=== PATIENT | male | born 1980 | race Caucasian/White ===

== ENCOUNTER 2023-03-10 12:04 | Inpatient (IN) | payer OTHER ==
[2023-03-10] MEDS ORDERED: SODIUM CHLORIDE 0.9% 1,000 ML IV STA ×2 (13:01)
[2023-03-10] MEDS ORDERED: LORazepam 2 MG/ML INJ IV STA ×2 (13:01→16:33)
[2023-03-10 13:20] LABS: Anisocytosis Slight; Basophils % (A) 1 %; Eosinophils # (A) 0.2 k/uL (0-0.7); Eosinophils % (A) 5 %; HCT 31.4 % (39.0-53.0); HGB 9.9 gm/dL (13.0-17.5); Hypochromasia Marked; Lymphocytes % (A) 28 %; MCHC 31.4 g/dL (31.0-37.0); MCV 82.7 fL (80.0-100.0); Monocytes # (A) 0.2 k/uL (0-1.0); Monocytes % (A) 5 %; Neutrophils # (A) 1.9 k/uL (1.3-7.7); Neutrophils % (A) 57 %; Platelet Count 456 k/uL (150-450); Poikilocytosis Moderate; RDW 18.3 % (11.5-15.5); WBC 3.4 k/uL (3.8-10.6)
[2023-03-10 13:35] LABS: ALT 10 U/L (4-49); AST 31 U/L (17-59); African American GFR (CKD) >90 (>60 ml/min/1.73 sqM); Albumin 4.1 g/dL (3.5-5.0); Alkaline Phosphatase 73 U/L (38-126); Anion Gap 20 mmol/L; Blood Urea Nitrogen 4 mg/dL (9-20); Calcium 8.1 mg/dL (8.4-10.2); Carbon Dioxide 20 mmol/L (22-30); Chloride 103 mmol/L (98-107); Glucose 90 mg/dL (74-99); Lipase 57 U/L (23-300); Magnesium 1.3 mg/dL (1.6-2.3); Non-African American GFR(CKD) >90 (>60 ml/min/1.73 sqM); Sodium 143 mmol/L (137-145); Total Bilirubin 0.2 mg/dL (0.2-1.3); Total Protein 6.7 g/dL (6.3-8.2)
[2023-03-10 13:47] LABS: Alcohol 397 mg/dL
[2023-03-10 14:24] LABS: Amphetamine Screen,Urine Not Detected (NotDetected); Barbiturate Screen,Urine Detected (NotDetected); Benzodiazepines Screen,Urine Detected (NotDetected); Cocaine Screen,Urine Not Detected (NotDetected); Methadone Screen, Urine Not Detected (NotDetected); Opiate Screen,Urine Not Detected (NotDetected); Oxycodone Screen, Urine Not Detected (NotDetected); Phencyclidine Screen,Urine Not Detected (NotDetected); Tricyclic Antidepressant,Urine Not Detected (NotDetected); Urn Cannabinoid Scrn Detected (NotDetected)
--- NOTE | 2023-03-10 14:45 | ED ---
Alcohol HPI - General Chief Complaint: GI Bleed Stated Complaint: poss GI bleed Time Seen by Provider: 03/10/23 12:11 Source: patient, RN notes reviewed, old records reviewed Mode of arrival: EMS Limitations: no limitations - History of Present Illness Initial Comments: This is a 42-year-old male to the emergency department for evaluation patient comes in under stress and likely intoxication or impending DTs of possible seizure history of seizures patient is withdrawal seizures as well as underlying seizure history. Patient presents with alcohol abuse and opiate abuse. No trauma no travel history or sick contacts no other complaints. 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, unknown -: hour(s) Recent Trauma: No Associated Symptoms: seizure, depression Treatments Prior to Arrival: none Chronic Alcohol Use: Yes - Related Data Home Medications Medication Instructions Recorded Confirmed Acetaminophen Tab [Tylenol] 650 mg PO Q6H PRN 03/10/23 03/10/23 Folic Acid 1 mg PO DAILY 03/10/23 03/10/23 High Potency Multivitamin With Iron 1 tab PO DAILY 03/10/23 03/10/23 Magnesium Oxide [Magox 400] 400 mg PO DAILY 03/10/23 03/10/23 Metoprolol Tartrate [Lopressor] 25 mg PO BID 03/10/23 03/10/23 Nicotine 21Mg/24Hr Patch [Habitrol] 1 patch TRANSDERM DAILY PRN 03/10/23 03/10/23 Ondansetron Odt [Zofran Odt] 4 mg PO TID PRN 03/10/23 03/10/23 Pantoprazole [Protonix] 40 mg PO BID 03/10/23 03/10/23 QUEtiapine [SEROquel] 50 mg PO HS 03/10/23 03/10/23 Thiamine [Vitamin B-1] 100 mg PO DAILY 03/10/23 03/10/23 levETIRAcetam [Keppra] 1,000 mg PO BID 03/10/23 03/10/23 Allergies Allergy/AdvReac Type Severity Reaction Status Date / Time aspirin Allergy Unknown Unknown Verified 03/10/23 16:38 Childhood Penicillins Allergy Unknown Unknown Verified 03/10/23 16:38 Childhood Review of Systems ROS Statement: Those systems with pertinent positive or pertinent negative responses have been documented in the HPI. ROS Other: All systems not noted in ROS Statement are negative. Past Medical History Past Medical History: Hypertension, Seizure Disorder Additional Past Medical History / Comment(s): closed head injury 2011, hx drug and alcohol abuse History of Any Multi-Drug Resistant Organisms: None Reported Past Surgical History: No Surgical Hx Reported Past Psychological History: Anxiety, Depression, Schizophrenia Past Alcohol Use History: Daily, Heavy General Exam Limitations: no limitations, altered mental status, physical limitation General appearance: alert, appears intoxicated, lethargic Head exam: Present: atraumatic, normocephalic, normal inspection Eye exam: Present: normal appearance, PERRL, EOMI. Absent: scleral icterus, conjunctival injection, periorbital swelling ENT exam: Present: normal exam, mucous membranes moist Neck exam: Present: normal inspection. Absent: tenderness, meningismus, lymphadenopathy Respiratory exam: Present: normal lung sounds bilaterally. Absent: respiratory distress, wheezes, rales, rhonchi, stridor Cardiovascular Exam: Present: regular rate, normal rhythm, normal heart sounds. Absent: systolic murmur, diastolic murmur, rubs, gallop, clicks GI/Abdominal exam: Present: soft, normal bowel sounds. Absent: distended, tenderness, guarding, rebound, rigid Extremities exam: Present: normal inspection, full ROM, normal capillary refill. Absent: tenderness, pedal edema, joint swelling, calf tenderness Back exam: Present: normal inspection Neurological exam: Present: alert, oriented X3, CN II-XII intact Psychiatric exam: Present: normal affect, normal mood Skin exam: Present: warm, dry, intact, normal color. Absent: rash Course Vital Signs 03/10/23 03/10/23 12:13 13:40 Temperature 98.2 F Pulse Rate 104 H 82 Respiratory 18 Rate Blood Pressure 123/86 O2 Sat by Pulse 100 Oximetry - Reevaluation(s) Reevaluation #1: 03/10/23 19:09 Medical record is reviewed Reevaluation #2: 03/10/23 19:09 Patient has improved symptoms here in the ER more relaxed Reevaluation #3: 03/10/23 19:09 Patient informed results and questions answered Reevaluation #4: 03/10/23 19:09 Was pt. sent in by a medical professional or institution? @ -[facility] Did you speak to anyone other than the patient for history? @ -no Did you review nursing and triage notes? @ -agree Were old charts reviewed? @ -no Differential Diagnosis? @ -prior EKG interpreted by me (3pts min.)? @ -yes X-rays interpreted by me (1pt min.)? @ -no CT interpreted by me (1pt min.)? @ -no U/S interpreted by me (1pt. min.)? @ -no What testing was considered but not performed? (CT, X-rays, U/S, labs)? Why? @ -no What meds were considered but not given? Why? @ -no Did you discuss the management of the patient with other professionals? @ -admitting physician re management of DTs Did you reconcile home meds? @ -no Was smoking cessation discussed for >3mins.? @ -no Was critical care preformed (if so, how long)? @ -no Were there social determinants of health that impacted care today? How? (Homelessness, low income, unemployed, alcoholism, drug addiction, transportation, low edu. Level, literacy, decrease access to med. care, prison, rehab)? @ -no Was there de-escalation of care discussed even if they declined? (Discuss DNR or withdrawal of care, Hospice)? @ -no What co-morbidities impacted this encounter? (DM, HTN, Smoking, COPD, CAD, Cancer, CVA, Hep., AIDS, mental health diagnosis, sleep apnea, morbid obesity)? @ -no Was patient admitted / discharged? @ -admit Undiagnosed new problem with uncertain prognosis? @ -no Drug Therapy requiring intensive monitoring for toxicity (Heparin, Nitro, Insulin, Cardizem)? @ -no Were any procedures done? @ -no Diagnosis/symptom? @ -ETOHintoxication, ImpendingDTs Acute, or Chronic, or Acute on Chronic? @ -acute Uncomplicated (without systemic symptoms) or Complicated (systemic symptoms)? @ -uncomplicated Side effects of treatment? @ -no Exacerbation, Progression, or Severe Exacerbation] @ -no Poses a threat to life or bodily function? @ -no Reevaluation #5: 03/10/23 19:09 Differential Altered Mental Status: Hypoglycemia, DKA, hypercapnia, ETOH, overdose, CO poisoning, trauma, myxedema coma, HTN encephalopathy, infection, encephalitis, psychosis, intercranial hemorrhage, hepatic encephalopathy, meningitis, CVA, this is not meant to be an all-inclusive list - Consultations Consultation #1: Spoke with admitting physicians will admit this patient Medical Decision Making - Medical Decision Making 42 male sent to the ER for evaluation of alcohol withdrawal alcohol intoxication altered mental status, patient was sent in by [facility] found to be significantly intoxicated anxious and will be admitted for impending DTs - Lab Data Result diagrams: 03/10/23 13:08 03/10/23 13:08 Lab Results 03/10/23 03/10/23 03/10/23 Range/Units 13:08 13:08 13:12 WBC 3.4 L (3.8-10.6) k/uL RBC 3.80 L (4.30-5.90) m/uL Hgb 9.9 L (13.0-17.5) gm/dL Hct 31.4 L (39.0-53.0) % MCV 82.7 (80.0-100.0) fL MCH 26.0 (25.0-35.0) pg MCHC 31.4 (31.0-37.0) g/dL RDW 18.3 H (11.5-15.5) % Plt Count 456 H (150-450) k/uL MPV 7.0 Neutrophils % 57 % Lymphocytes % 28 % Monocytes % 5 % Eosinophils % 5 % Basophils % 1 % Neutrophils # 1.9 (1.3-7.7) k/uL Lymphocytes # 1.0 (1.0-4.8) k/uL Monocytes # 0.2 (0-1.0) k/uL Eosinophils # 0.2 (0-0.7) k/uL Basophils # 0.0 (0-0.2) k/uL Hypochromasia Marked Poikilocytosis Moderate Anisocytosis Slight Sodium 143 (137-145) mmol/L Potassium 4.0 (3.5-5.1) mmol/L Chloride 103 (98-107) mmol/L Carbon Dioxide 20 L (22-30) mmol/L Anion Gap 20 mmol/L BUN 4 L (9-20) mg/dL Creatinine 0.51 L (0.66-1.25) mg/dL Est GFR (CKD-EPI)AfAm >90 (>60 ml/min/1.73 sqM) Est GFR (CKD-EPI)NonAf >90 (>60 ml/min/1.73 sqM) Glucose 90 (74-99) mg/dL Calcium 8.1 L (8.4-10.2) mg/dL Phosphorus 4.0 (2.5-4.5) mg/dL Magnesium 1.3 L (1.6-2.3) mg/dL Total Bilirubin 0.2 (0.2-1.3) mg/dL AST 31 (17-59) U/L ALT 10 (4-49) U/L Alkaline Phosphatase 73 (38-126) U/L Total Protein 6.7 (6.3-8.2) g/dL Albumin 4.1 (3.5-5.0) g/dL Lipase 57 (23-300) U/L Urine Opiates Screen Not Detected (NotDetected) Ur Oxycodone Screen Not Detected (NotDetected) Urine Methadone Screen Not Detected (NotDetected) Ur Propoxyphene Screen Not Detected (NotDetected) Ur Barbiturates Screen Detected H (NotDetected) U Tricyclic Antidepress Not Detected (NotDetected) Ur Phencyclidine Scrn Not Detected (NotDetected) Ur Amphetamines Screen Not Detected (NotDetected) U Methamphetamines Scrn Not Detected (NotDetected) U Benzodiazepines Scrn Detected H (NotDetected) Urine Cocaine Screen Not Detected (NotDetected) U Marijuana (THC) Screen Detected H (NotDetected) Serum Alcohol 397 H* mg/dL Disposition Clinical Impression: Alcohol intoxication, Alcohol withdrawal delirium, Gastritis, Pancreatitis, Polysubstance abuse Disposition: ADMITTED IP TO THIS HOSP Condition: Fair Is patient prescribed a controlled substance at d/c from ED?: No Time of Disposition: 16:40
[2023-03-10] MEDS ORDERED: THIAMINE 100 MG/ML 2 ML VIAL IM STA (16:41)
[2023-03-10] MEDS ORDERED: NALOXONE 0.4 MG/ML 1 ML VIAL IV PRN (16:41)
[2023-03-10] MEDS ORDERED: ONDANSETRON 4 MG/2 ML VIAL IVP PRN (16:41)
[2023-03-10] MEDS: SODIUM CHLORIDE 0.9% 1,000 ML IV SCH (17:30)
[2023-03-10] MEDS: LORazepam 2 MG/ML INJ IV PRN (23:22)
[2023-03-10] MEDS ORDERED: Magnesium Replacement Protocol 1 EACH MISC MISCELLANE PRN (23:39)
[2023-03-10] MEDS: QUEtiapine 50 MG TAB PO SCH (23:59)
[2023-03-10] MEDS: METOPROLOL TARTRATE 25 MG TAB PO SCH (23:59)
[2023-03-10] MEDS: levETIRAcetam 500 MG TAB PO SCH (23:59)
[2023-03-10] MEDS: ACETAMINOPHEN TAB 325 MG TAB PO PRN (23:59)
[2023-03-10] MEDS: NICOTINE 21MG/24HR PATCH TRANSDERM PRN (23:59)
[2023-03-11] MEDS: SODIUM CHLORIDE 0.9% 1,000 ML IV SCH ×3 (00:07→16:13)
[2023-03-11] MEDS: MAGNESIUM SULFATE-D5W PMX 1 GM in DEXTROSE/WATER 1 100ML.BAG IVPB SCH ×4 (00:07→04:05)
[2023-03-11] MEDS: LORazepam 2 MG/ML INJ IV PRN ×5 (04:13→20:21)
[2023-03-11] MEDS: ACETAMINOPHEN TAB 325 MG TAB PO PRN (06:02)
[2023-03-11] MEDS: PANTOPRAZOLE 40 MG TABLET PO SCH ×2 (06:40→16:30)
[2023-03-11] MEDS ORDERED: THIAMINE 100 MG TAB PO SCH (09:00)
[2023-03-11] MEDS: MAGNESIUM OXIDE 400 MG TAB PO SCH (09:16)
[2023-03-11] MEDS: METOPROLOL TARTRATE 25 MG TAB PO SCH ×2 (09:16→20:21)
[2023-03-11] MEDS: levETIRAcetam 500 MG TAB PO SCH ×2 (09:16→20:21)
[2023-03-11] MEDS: THIAMINE 100 MG TAB PO SCH (09:16)
[2023-03-11] MEDS ORDERED: LORazepam 2 MG/ML INJ IV PRN (15:48)
--- NOTE | 2023-03-11 16:04 | P.HPIM ---
History of Present Illness H&P Date: 03/11/23 This is a 42 year old male with history of chronic alcohol abuse, alcohol withdrawal seizure, and opiate abuse, who presents to the emergency room intoxicated and is admitted for alcohol detox. Patient states he arrived to [facility] and was told he could not be admitted for rehab and patient was brought to the emergency room for impending alcohol withdrawal. Patient had blood alcohol level of 397 on admission, with drug toxicology positive for barbituates, benzodiazepines, marijuana. hemoglobin also low at 9.9 with no other levels to compare too, his MCV is normal. Magnesium was 1.3 and also replaced. Patient is hemodynamically stable. He has been started on ativan CIWA protocol and admitted to medical floor. This morning he is refusing lab draws. REVIEW OF SYSTEMS: CONSTITUTIONAL: No fever, no malaise, no fatigue. HEENT: No recent visual problems or hearing problems. Denied any sore throat. CARDIOVASCULAR: No chest pain, orthopnea, PND, no palpitations, no syncope. PULMONARY: No shortness of breath, no cough, no hemoptysis. GASTROINTESTINAL: No diarrhea, no nausea, no vomiting, no abdominal pain. NEUROLOGICAL: No headaches, no weakness, no numbness. HEMATOLOGICAL: Denies any bleeding or petechiae. GENITOURINARY: Denies any burning micturition, frequency, or urgency. MUSCULOSKELETAL/RHEUMATOLOGICAL: Denies any joint pain, swelling, or any muscle pain. ENDOCRINE: Denies any polyuria or polydipsia. The rest of the 14-point review of systems is negative. PHYSICAL EXAMINATION: GENERAL: The patient is alert and oriented x3, not in any acute distress. Well developed, well nourished. HEENT: Pupils are round and equally reacting to light. EOMI. No scleral icterus. No conjunctival pallor. Normocephalic, atraumatic. No pharyngeal erythema. No th yromegaly. CARDIOVASCULAR: S1 and S2 present. No murmurs, rubs, or gallops. PULMONARY: Chest is clear to auscultation, no wheezing or crackles. ABDOMEN: Soft, nontender, nondistended, normoactive bowel sounds. No palpable organomegaly. MUSCULOSKELETAL: No joint swelling or deformity. EXTREMITIES: No cyanosis, clubbing, or pedal edema. NEUROLOGICAL: Gross neurological examination did not reveal any focal deficits. SKIN: No rashes. Assessment Acute alcohol intoxication with impending DTs. Anemia, normocytic Hypomagnesemia Polysubstance abuse History of seizure disorder from close head injury in 2010 History of alcohol withdrawal seizure Chronic and ongoing nicotine use History of hypertension Anxiety/Depression/Schizophrenia GI prophylaxis DVT prophylaxis Full Code Plan Continue IV ativan CIWA protocol and oral librium as needed has been added Continue IV fluids and diet as tolerated Continue supportive care Repeat labs in AM patient is agreeable to AM lab draw The impression and plan of care has been dictated by Susanne Garcia Nurse Practitioner as directed. Dr. Sandra MD I have performed a history and physical examination and medical decision making of this patient, discussed the same with the dictator, and agree with the dictators assessment and plan as written, documented as a scribe. Based on total visit time, I have performed more than 50% of this visit. Past Medical History Past Medical History: Hypertension, Seizure Disorder Additional Past Medical History / Comment(s): closed head injury 2010, hx drug and alcohol abuse History of Any Multi-Drug Resistant Organisms: None Reported Past Surgical History: No Surgical Hx Reported Past Psychological History: Anxiety, Depression, Schizophrenia Smoking Status: Current every day smoker Past Alcohol Use History: Daily, Heavy Past Drug Use History: None Reported Medications and Allergies Home Medications Medication Instructions Recorded Confirmed Type Acetaminophen Tab [Tylenol] 650 mg PO Q6H PRN 03/10/23 03/10/23 History Folic Acid 1 mg PO DAILY 03/10/23 03/10/23 History High Potency Multivitamin With Iron 1 tab PO DAILY 03/10/23 03/10/23 History Magnesium Oxide [Magox 400] 400 mg PO DAILY 03/10/23 03/10/23 History Metoprolol Tartrate [Lopressor] 25 mg PO BID 03/10/23 03/10/23 History Nicotine 21Mg/24Hr Patch [Habitrol] 1 patch TRANSDERM DAILY PRN 03/10/2303/10 History Ondansetron Odt [Zofran Odt] 4 mg PO TID PRN 03/10/23 03/10/23 History Pantoprazole [Protonix] 40 mg PO BID 03/10/23 03/10/23 History QUEtiapine [SEROquel] 50 mg PO HS 03/10/23 03/10/23 History Thiamine [Vitamin B-1] 100 mg PO DAILY 03/10/23 03/10/23 History levETIRAcetam [Keppra] 1,000 mg PO BID 03/10/23 03/10/23 History Allergies Allergy/AdvReac Type Severity Reaction Status Date / Time aspirin Allergy Unknown Unknown Verified 03/10/23 16:38 Childhood Penicillins Allergy Unknown Unknown Verified 03/10/23 16:38 Childhood Physical Exam Vitals: Vital Signs Temp Pulse Pulse Resp BP BP Pulse Ox 03/11/23 07:30 98.1 F 84 16 117/66 98 03/11/23 02:10 98.5 F 88 14 112/70 100 03/10/23 21:40 92 16 124/83 97 03/10/23 13:40 82 03/10/23 12:13 98.2 F 104 H 18 123/86 100 Intake and Output 03/10/23 03/11/23 03/11/23 22:59 06:59 14:59 Other: # Voids 4 Weight 72.575 kg Results CBC & Chem 7: 03/10/23 13:08 03/10/23 13:08 Labs: Abnormal Lab Results - Last 24 Hours (Table) 03/10/23 03/10/23 03/10/23 Range/Units 13:08 13:08 13:12 WBC 3.4 L (3.8-10.6) k/uL RBC 3.80 L (4.30-5.90) m/uL Hgb 9.9 L (13.0-17.5) gm/dL Hct 31.4 L (39.0-53.0) % RDW 18.3 H (11.5-15.5) % Plt Count 456 H (150-450) k/uL Carbon Dioxide 20 L (22-30) mmol/L BUN 4 L (9-20) mg/dL Creatinine 0.51 L (0.66-1.25) mg/dL Calcium 8.1 L (8.4-10.2) mg/dL Magnesium 1.3 L (1.6-2.3) mg/dL Ur Barbiturates Screen Detected H (NotDetected) U Benzodiazepines Scrn Detected H (NotDetected) U Marijuana (THC) Screen Detected H (NotDetected) Serum Alcohol 397 H* mg/dL Thrombosis Risk Factor Assmnt - Choose All That Apply Any of the Below Risk Factors Present?: Yes Each Factor Represents 1 point: Age 41-60 years Other Risk Factors: No Other congenital or acquired thrombophilia - If yes, enter type in comment: No Thrombosis Risk Factor Assessment Total Risk Factor Score: 1 Thrombosis Risk Factor Assessment Level: Low Risk Assessment and Plan Time with Patient: Less than 30
[2023-03-11] MEDS: chlordiazePOXIDE 25 MG CAP PO PRN (16:13)
[2023-03-11] MEDS: QUEtiapine 50 MG TAB PO SCH (20:21)
[2023-03-11] MEDS ORDERED: diphenhydrAMINE 25 MG CAP PO STA (22:21)
[2023-03-12] MEDS: NICOTINE 21MG/24HR PATCH TRANSDERM PRN (01:44)
[2023-03-12] MEDS: LORazepam 2 MG/ML INJ IV PRN (01:44)
[2023-03-12] MEDS: ACETAMINOPHEN TAB 325 MG TAB PO PRN ×2 (02:05→21:21)
[2023-03-12] MEDS: hydrOXYzine HCL 10 MG TAB PO PRN (02:06)
[2023-03-12] MEDS: SODIUM CHLORIDE 0.9% 1,000 ML IV SCH ×2 (05:36→17:47)
[2023-03-12] MEDS ORDERED: LORazepam 0.5 MG TAB PO PRN (06:40)
[2023-03-12] MEDS: LORazepam 1 MG TAB PO PRN ×4 (06:59→21:59)
[2023-03-12] MEDS: PANTOPRAZOLE 40 MG TABLET PO SCH (06:59)
[2023-03-12] MEDS: METOPROLOL TARTRATE 25 MG TAB PO SCH ×2 (10:13→21:21)
[2023-03-12] MEDS: THIAMINE 100 MG TAB PO SCH (10:13)
[2023-03-12] MEDS: MAGNESIUM OXIDE 400 MG TAB PO SCH (10:13)
[2023-03-12] MEDS: levETIRAcetam 500 MG TAB PO SCH ×2 (10:13→21:21)
[2023-03-12 12:27] LABS: African American GFR (CKD) >90 (>60 ml/min/1.73 sqM); Anion Gap 8 mmol/L; Blood Urea Nitrogen <2 mg/dL (9-20); Calcium 8.4 mg/dL (8.4-10.2); Carbon Dioxide 25 mmol/L (22-30); Chloride 101 mmol/L (98-107); Glucose 85 mg/dL (74-99); Magnesium 1.2 mg/dL (1.6-2.3); Non-African American GFR(CKD) >90 (>60 ml/min/1.73 sqM); Sodium 134 mmol/L (137-145)
[2023-03-12] MEDS ORDERED: Magnesium Replacement Protocol 1 EACH MISC MISCELLANE PRN (13:28)
--- NOTE | 2023-03-12 13:35 | P.PN ---
Subjective Progress Note Date: 03/12/23 This is a 42 year old male with history of chronic alcohol abuse, alcohol withdrawal seizure, and opiate abuse, who presents to the emergency room intoxicated and is admitted for alcohol detox. Patient states he arrived to [facility] and was told he could not be admitted for rehab and patient was brought to the emergency room for impending alcohol withdrawal. Patient had blood alcohol level of 397 on admission, with drug toxicology positive for barbituates, benzodiazepines, marijuana. hemoglobin also low at 9.9 with no other levels to compare too, his MCV is normal. Magnesium was 1.3 and also replaced. Patient is hemodynamically stable. He has been started on ativan CIWA protocol and admitted to medical floor. This morning he is refusing lab draws. 03/12/2023 Patient today is doing well requiring less ativan, tremors have improved. He denies any nausea/ vomiting but has not been able to tolerate much oral intake secondary to abdominal pain which is tender over the epigastric area. He does report having black stools a few days ago which he had denied yesterday. Per [place] patient is unable to return unless he is cleared by GI services which currently unavailable in the hospital this admission. Hemoglobin today is currently pending. Sodium today is 134, magnesium 1.2. Patient lost IV access and difficult to obtain he is pending a midline today to continue with the IV fluids and replace his magnesium. He reports feeling weak also. Review of Systems Constitutional: Reports fatigue denied any fever. Cardio vascular: denied any chest pain, palpitations Gastrointestinal: denied any nausea, vomiting. Reports abdominal pain and black stools. Pulmonary: Denied any shortness of breath cough Neurologic denied any new focal deficits All inpatient medications were reviewed and appropriate changes in these medications as dictated in the interval history and assessment and plan. PHYSICAL EXAMINATION: GENERAL: The patient is alert and oriented x3, not in any acute distress. Well developed, well nourished. Fatigued HEENT: Pupils are round and equally reacting to light. EOMI. No scleral icterus. No conjunctival pallor. Normocephalic, atraumatic. No pharyngeal erythema. No thyromegaly. CARDIOVASCULAR: S1 and S2 present. No murmurs, rubs, or gallops. PULMONARY: Chest is clear to auscultation, no wheezing or crackles. ABDOMEN: Soft, epigastric tenderness on palpation, nondistended, normoactive bowel sounds. No palpable organomegaly. MUSCULOSKELETAL: No joint swelling or deformity. EXTREMITIES: No cyanosis, clubbing, or pedal edema. NEUROLOGICAL: Gross neurological examination did not reveal any focal deficits. Generalized weakness. SKIN: No rashes. Assessment Acute alcohol intoxication with acute alcohol withdrawal improving Dark stool and epigastric pain rule out acute GIB Anemia, normocytic Hypomagnesemia Polysubstance abuse History of seizure disorder from close head injury in 2010 History of alcohol withdrawal seizure Chronic and ongoing nicotine use History of hypertension Anxiety/Depression/Schizophrenia GI prophylaxis DVT prophylaxis Full Code Plan Obtain IV access to continue with IV fluids Replace magnesium Continue ativan CIWA protocol and oral librium as needed has been added General surgery consulted regarding the epigastric pain/black stools PT/OT consultation Continue supportive care The impression and plan of care has been dictated by Nurse Erin Prac titioner as directed. Dr. Sandra MD I have performed a history and physical examination and medical decision making of this patient, discussed the same with the dictator, and agree with the dictators assessment and plan as written, documented as a scribe. Based on total visit time, I have performed more than 50% of this visit. Objective - Vital Signs Vital signs: Vital Signs Temp 98.6 F 03/12/23 07:00 Pulse 88 03/12/23 07:00 Resp 16 03/12/23 07:00 BP 103/66 03/12/23 07:00 Pulse Ox 98 03/12/23 07:00 FiO2 Intake & Output 03/11/23 03/12/23 03/12/23 18:59 06:59 18:59 Output Total 300 Balance -300 Output: Urine 300 Other: Voiding Method Toilet Urinal # Voids 3 - Labs CBC & Chem 7: 03/10/23 13:08 03/12/23 11:21 Labs: Abnormal Lab Results - Last 24 Hours (Table) 03/12/23 Range/Units 11:21 Sodium 134 L (137-145) mmol/L BUN <2 L (9-20) mg/dL Creatinine 0.47 L (0.66-1.25) mg/dL Magnesium 1.2 L (1.6-2.3) mg/dL
--- NOTE | 2023-03-12 15:22 | P.GSCN ---
History of Present Illness Consult date: 03/12/23 History of present illness: CHIEF COMPLAINT: Black stools HISTORY OF PRESENT ILLNESS: This is a 42-year-old male with a known history of chronic alcohol abuse and opiate abuse. He presents to the hospital from [place] for alcohol detox. Patient was intoxicated on admission. He is actively going through withdrawals requiring Ativan. He is currently lost IV access. And had his refused IV replaced. Apparently 2 days ago patient had black stools. Patient reports that it was just 3 episodes. He denies any abdominal pain. Denies any nausea or vomiting. He's had no further black stools. Patient reports requiring EGDs in the past. It is difficult to obtain history from patient due to him going through withdrawals. Hemoglobin 9.9 on admission. According to medicine service is requiring GI clearance before patient can return. Patient is no longer having black stools. PAST MEDICAL HISTORY: Alcohol use, alcohol withdrawal seizure, seizure history from closed head injury in 2010, history of drug and alcohol abuse, schizophrenia, anxiety and depression PAST SURGICAL HISTORY: See below MEDICATIONS: See below ALLERGIES: See below SOCIAL HISTORY: Opiate abuse and heavy alcohol use REVIEW OF SYSTEMS: CONSTITUTIONAL: Denies fever or chills. HEENT: Denies blurred vision, vision changes, or eye pain. Denies hemoptysis CARDIOVASCULAR: Denies chest pain or pressure. RESPIRATORY: No shortness of breath. GASTROINTESTINAL: See HPI for pertinent findings HEMATOLOGIC: Denies bleeding disorders. GENITOURINARY: Denies any blood in urine or increased urinary frequency. SKIN: Denies pruitis. Denies rash. PHYSICAL EXAM: VITAL SIGNS: Reviewed GENERAL: Well-developed in no acute distress. ABDOMEN: Soft. Nondistended. nontender NEUROLOGIC: Awake and alert. confused LABORATORY DATA: WBC 3.4 Hgb 9.9 platelets 456 Sodium 134 potassium 4.0 creatinine 0.47 Magnesium 1.2 Total bilirubin 0.2 AST 31 ALT 10 alk phos 73 lipase 57 Urine drug screen barbiturates, benzodiazepine and and marijuana detected Serum alcohol level elevated at 397 IMAGING: ASSESSMENT: 1. Alcohol intoxication with alcohol withdrawal 2. Anemia with black stools 3. Hypomagnesemia 4. Polysubstance abuse PLAN: -Recommend EGD and colonoscopy when he is not actively going through withdrawals and is medically stable -Continue regular diet -Continue IV Protonix -Continue to monitor hemoglobin -Continue monitoring sensor symptoms of bleeding -Continue CIWA protocol for ETOH withdrawal -Magnesium is being replaced the medicine service Thank you for this consultation Physician Vegetable Cutter note has been reviewed by physician. Signing provider agrees with the documented findings, assessment, and plan of care. Past Medical History Past Medical History: Hypertension, Seizure Disorder Additional Past Medical History / Comment(s): closed head injury 2010, hx drug and alcohol abuse History of Any Multi-Drug Resistant Organisms: None Reported Past Surgical History: No Surgical Hx Reported Past Psychological History: Anxiety, Depression, Schizophrenia Smoking Status: Current every day smoker Past Alcohol Use History: Daily, Heavy Past Drug Use History: None Reported Medications and Allergies Home Medications Medication Instructions Recorded Confirmed Type Acetaminophen Tab [Tylenol] 650 mg PO Q6H PRN 03/10/23 03/10/23 History Folic Acid 1 mg PO DAILY 03/10/23 03/10/23 History High Potency Multivitamin With Iron 1 tab PO DAILY 03/10/23 03/10/23 History Magnesium Oxide [Magox 400] 400 mg PO DAILY 03/10/23 03/10/23 History Metoprolol Tartrate [Lopressor] 25 mg PO BID 03/10/23 03/10/23 History Nicotine 21Mg/24Hr Patch [Habitrol] 1 patch TRANSDERM DAILY PRN 03/10/23 03/10/23 History Ondansetron Odt [Zofran Odt] 4 mg PO TID PRN 03/10/23 03/10/23 History Pantoprazole [Protonix] 40 mg PO BID 03/10/23 03/10/23 History QUEtiapine [SEROquel] 50 mg PO HS 03/10/23 03/10/23 History Thiamine [Vitamin B-1] 100 mg PO DAILY 03/10/23 03/10/23 History levETIRAcetam [Keppra] 1,000 mg PO BID 03/10/23 03/10/23 History Allergies Allergy/AdvReac Type Severity Reaction Status Date / Time aspirin Allergy Unknown Unknown Verified 03/10/23 16:38 Childhood Penicillins Allergy Unknown Unknown Verified 03/10/23 16:38 Childhood Surgical - Exam Vital Signs Temp Pulse Resp BP Pulse Ox 98.2 F 104 H 18 123/86 100 03/10/23 12:13 03/10/23 12:13 03/10/23 12:13 03/10/23 12:13 03/10/23 12:13 Results - Labs 03/10/23 13:08 03/12/23 11:21 Abnormal Lab Results - Last 24 Hours (Table) 03/12/23 Range/Units 11:21 Sodium 134 L (137-145) mmol/L BUN <2 L (9-20) mg/dL Creatinine 0.47 L (0.66-1.25) mg/dL Magnesium 1.2 L (1.6-2.3) mg/dL Diabetes panel 03/12/23 Range/Units 11:21 Sodium 134 L (137-145) mmol/L Potassium 4.0 (3.5-5.1) mmol/L Chloride 101 (98-107) mmol/L Carbon Dioxide 25 (22-30) mmol/L BUN <2 L (9-20) mg/dL Creatinine 0.47 L (0.66-1.25) mg/dL Glucose 85 (74-99) mg/dL Calcium 8.4 (8.4-10.2) mg/dL Calcium panel 03/12/23 Range/Units 11:21 Calcium 8.4 (8.4-10.2) mg/dL Pituitary panel 03/12/23 Range/Units 11:21 Sodium 134 L (137-145) mmol/L Potassium 4.0 (3.5-5.1) mmol/L Chloride 101 (98-107) mmol/L Carbon Dioxide 25 (22-30) mmol/L BUN <2 L (9-20) mg/dL Creatinine 0.47 L (0.66-1.25) mg/dL Glucose 85 (74-99) mg/dL Calcium 8.4 (8.4-10.2) mg/dL Adrenal panel 03/12/23 Range/Units 11:21 Sodium 134 L (137-145) mmol/L Potassium 4.0 (3.5-5.1) mmol/L Chloride 101 (98-107) mmol/L Carbon Dioxide 25 (22-30) mmol/L BUN <2 L (9-20) mg/dL Creatinine 0.47 L (0.66-1.25) mg/dL Glucose 85 (74-99) mg/dL Calcium 8.4 (8.4-10.2) mg/dL
[2023-03-12] MEDS: MAGNESIUM SULFATE-D5W PMX 1 GM in DEXTROSE/WATER 1 100ML.BAG IVPB SCH ×4 (15:35→17:34)
[2023-03-12] MEDS ORDERED: HALOPERIDOL LACTATE 5 MG/ML 1 ML VIAL IM PRN (16:16)
[2023-03-12 16:40] LABS: Basophils # (A) 0.03 X 10*3/uL (0.00-0.10); Basophils % (A) 0.7 %; Eosinophils # (A) 0.26 X 10*3/uL (0.04-0.35); Eosinophils % (A) 5.7 %; HCT 30.9 % (39.6-50.0); HGB 8.9 g/dL (13.0-17.0); Immature Grans, Automated 0.2 %; Lymphocytes # (A) 1.22 X 10*3/uL (0.90-5.00); Lymphocytes % (A) 26.7 %; MCH 25.5 pg (27.0-32.0); MCHC 28.8 g/dL (32.0-37.0); MCV 88.5 fL (80.0-97.0); Mean Platelet Volume 10.2 fL (9.5-12.2); Monocytes # (A) 0.35 X 10*3/uL (0.20-1.00); Monocytes % (A) 7.7 %; NRBC Per 100 WBC 0 /100 WBCS (0.0-0.0); Platelet Count 104 X 10*3/uL (140-440); RBC 3.49 X 10*6/uL (4.40-5.60); RDW 18.9 % (11.5-14.5); WBC 4.57 X 10*3/uL (4.50-10.00)
[2023-03-12] MEDS: chlordiazePOXIDE 25 MG CAP PO PRN (18:56)
[2023-03-12] MEDS: PANTOPRAZOLE 40 MG/10 ML VIAL IVP SCH (21:18)
[2023-03-12] MEDS: QUEtiapine 50 MG TAB PO SCH (21:21)
[2023-03-12] MEDS ORDERED: PROMETHAZINE 25 MG TAB PO STA (21:24)
[2023-03-13] MEDS: LORazepam 1 MG TAB PO PRN ×5 (02:14→23:53)
[2023-03-13] MEDS: PROMETHAZINE 25 MG TAB PO PRN (03:46)
[2023-03-13] MEDS: ACETAMINOPHEN TAB 325 MG TAB PO PRN (03:49)
[2023-03-13] MEDS: chlordiazePOXIDE 25 MG CAP PO PRN ×3 (03:49→22:45)
[2023-03-13] MEDS: NICOTINE 21MG/24HR PATCH TRANSDERM PRN (04:02)
[2023-03-13] MEDS: hydrOXYzine HCL 10 MG TAB PO PRN ×2 (04:02→22:46)
[2023-03-13 07:43] LABS: African American GFR (CKD) >90 (>60 ml/min/1.73 sqM); Anion Gap 10 mmol/L; Blood Urea Nitrogen <2 mg/dL (9-20); Calcium 8.5 mg/dL (8.4-10.2); Carbon Dioxide 23 mmol/L (22-30); Chloride 102 mmol/L (98-107); Glucose 87 mg/dL (74-99); Magnesium 1.2 mg/dL (1.6-2.3); Non-African American GFR(CKD) >90 (>60 ml/min/1.73 sqM); Potassium 3.7 mmol/L (3.5-5.1); Sodium 135 mmol/L (137-145)
[2023-03-13 07:48] LABS: Anisocytosis Slight; HCT 30.3 % (39.0-53.0); HGB 9.1 gm/dL (13.0-17.5); Hypochromasia Marked; MCH 25.2 pg (25.0-35.0); MCHC 29.8 g/dL (31.0-37.0); MCV 84.3 fL (80.0-100.0); Mean Platelet Volume 8.8; Platelet Count 286 k/uL (150-450); Poikilocytosis Slight; WBC 5.5 k/uL (3.8-10.6)
[2023-03-13] MEDS: THIAMINE 100 MG TAB PO SCH (08:45)
[2023-03-13] MEDS: levETIRAcetam 500 MG TAB PO SCH ×2 (08:45→20:55)
[2023-03-13] MEDS: METOPROLOL TARTRATE 25 MG TAB PO SCH ×2 (08:45→20:56)
[2023-03-13] MEDS: MAGNESIUM OXIDE 400 MG TAB PO SCH (08:45)
[2023-03-13] MEDS: SODIUM CHLORIDE 0.9% 1,000 ML IV SCH ×2 (09:02→23:43)
[2023-03-13] MEDS: PANTOPRAZOLE 40 MG/10 ML VIAL IVP SCH ×2 (09:02→22:33)
--- NOTE | 2023-03-13 13:35 | P.PN ---
Subjective Progress Note Date: 03/13/23 CHIEF COMPLAINT: Alcohol intoxication HISTORY OF PRESENT ILLNESS: Surgical service following in regards to melanotic stools. Patient has had no melanotic stools since hospitalization. Denies abdominal pain. Denies any nausea or vomiting. Patient is more alert today. He does report some nausea. Still requiring Ativan. Hemoglobin stable at 9.1 magnesium remains low at 1.2. They're having difficulty with IV access. Patient does report prior EGDs due to his esophageal varices. PHYSICAL EXAM: VITAL SIGNS: Reviewed. GENERAL: Well-developed in no acute distress. ABDOMEN: Soft. Nondistended. Nontender. NEUROLOGIC: Alert and oriented. Cranial nerves II through XII grossly intact. ASSESSMENT: 1. Alcohol intoxication with alcohol withdrawal 2. Anemia with black stools 3. Hypomagnesemia 4. Polysubstance abuse PLAN: -Patient scheduled for EGD on 03/17/[address] Vasquez -Continue [facility] protocol for alcohol withdrawal -Continue IV Protonix -Continue monitor hemoglobin -Continue monitor for any signs or symptoms of bleeding -Magnesium replacement per medicine service Physician Water Service Supervisor note has been reviewed by physician. Signing provider agrees with the documented findings, assessment, and plan of care. Objective - Vital Signs Vital signs: Vital Signs Temp 97.3 F L 03/13/23 08:00 Pulse 57 L 03/13/23 08:00 Resp 18 03/13/23 08:00 BP 97/60 03/13/23 08:00 Pulse Ox 100 03/13/23 08:00 FiO2 Intake & Output 03/12/23 03/13/23 03/13/23 18:59 06:59 18:59 Other: Voiding Method Toilet Urinal # Voids 3 2 - Labs CBC & Chem 7: 03/13/23 07:02 03/13/23 07:02 Labs: Abnormal Lab Results - Last 24 Hours (Table) 03/12/23 03/13/23 03/13/23 Range/Units 11:21 07:02 07:02 RBC 3.49 L 3.60 L (4.40-5.60) X 10*6/uL Hgb 8.9 L 9.1 L (13.0-17.0) g/dL Hct 30.9 L 30.3 L (39.6-50.0) % MCH 25.5 L (27.0-32.0) pg MCHC 28.8 L 29.8 L (32.0-37.0) g/dL RDW 18.9 H 18.0 H (11.5-14.5) % Plt Count 104 L (140-440) X 10*3/uL Plt Count Comment DECREASED A Sodium 135 L (137-145) mmol/L BUN <2 L (9-20) mg/dL Creatinine 0.42 L (0.66-1.25) mg/dL Magnesium 1.2 L (1.6-2.3) mg/dL
[2023-03-13] MEDS ORDERED: MAGNESIUM SULFATE-D5W PMX 1 GM in DEXTROSE/WATER 1 100ML.BAG IVPB SCH (13:45)
[2023-03-13] MEDS: MAGNESIUM SULFATE-D5W PMX 1 GM in DEXTROSE/WATER 1 100ML.BAG IVPB SCH ×4 (16:41→22:33)
[2023-03-13] MEDS: QUEtiapine 50 MG TAB PO SCH (20:56)
[2023-03-13] MEDS ORDERED: MAGNESIUM OXIDE 400 MG TAB PO STA (22:47)
--- NOTE | 2023-03-13 23:28 | P.PN ---
Subjective Progress Note Date: 03/13/23 This is a 42 year old male with history of chronic alcohol abuse, alcohol withdrawal seizure, and opiate abuse, who presents to the emergency room intoxicated and is admitted for alcohol detox. Patient states he arrived to [facility] and was told he could not be admitted for rehab and patient was brought to the emergency room for impending alcohol withdrawal. Patient had blood alcohol level of 397 on admission, with drug toxicology positive for barbituates, benzodiazepines, marijuana. hemoglobin also low at 9.9 with no other levels to compare too, his MCV is normal. Magnesium was 1.3 and also replaced. Patient is hemodynamically stable. He has been started on ativan CIWA protocol and admitted to medical floor. This morning he is refusing lab draws. 03/12/2023 Patient today is doing well requiring less ativan, tremors have improved. He denies any nausea/ vomiting but has not been able to tolerate much oral intake secondary to abdominal pain which is tender over the epigastric area. He does report having black stools a few days ago which he had denied yesterday. Per [facility] patient is unable to return unless he is cleared by GI services which currently unavailable in the hospital this admission. Hemoglobin today is currently pending. Sodium today is 134, magnesium 1.2. Patient lost IV access and difficult to obtain he is pending a midline today to continue with the IV fluids and replace his magnesium. He reports feeling weak also. 03/13/2023 Patient evaluated today he is resting in bed. His mentation has improved today. He reports generalized aches and pains. States he was using suboxone not prescribed to him by a provider, states due to his alcoholism his doctor will no longer prescribe it to him. He is agreeing again for midline placement and order is placed. Magnesium will be replaced once patient receives IV access. No bowel movement overnight. Labs today show hemoglobin of 9.1, platelets of 286. Sodium of 135, magnesium 1.2. Review of Systems Constitutional: Reports fatigue denied any fever.Reports generalized aches. Cardio vascular: denied any chest pain, palpitations Gastrointestinal: denied any nausea, vomiting. Denies any further black stool. Pulmonary: Denied any shortness of breath cough Neurologic denied any new focal deficits All inpatient medications were reviewed and appropriate changes in these medications as dictated in the interval history and assessment and plan. PHYSICAL EXAMINATION: GENERAL: The patient is alert and oriented x3, not in any acute distress. Well developed, well nourished. Fatigued HEENT: Pupils are round and equally reacting to light. EOMI. No scleral icterus. No conjunctival pallor. Normocephalic, atraumatic. No pharyngeal erythema. No thyromegaly. CARDIOVASCULAR: S1 and S2 present. No murmurs, rubs, or gallops. PULMONARY: Chest is clear to auscultation, no wheezing or crackles. ABDOMEN: Soft, epigastric tenderness on palpation, nondistended, normoactive bowel sounds. No palpable organomegaly. MUSCULOSKELETAL: No joint swelling or deformity. EXTREMITIES: No cyanosis, clubbing, or pedal edema. NEUROLOGICAL: Gross neurological examination did not reveal any focal deficits. Generalized weakness. SKIN: No rashes. Assessment Acute alcohol intoxication with acute alcohol withdrawal improving Dark stool and epigastric pain rule out acute GIB Anemia, normocytic Hypomagnesemia Polysubstance abuse History of seizure disorder from close head injury in 2010 History of alcohol withdrawal seizure Chronic and ongoing nicotine use History of hypertension Anxiety/Depression/Schizophrenia GI prophylaxis DVT prophylaxis Full Code Plan Obtain IV access to continue with IV fluids Replace magnesium Continue ativan CIWA protocol and oral librium as needed has been added Patient is scheduled to undergo EGD on friday PT/OT consultation Continue supportive care and return to [facility] when medically stable. The impression and plan of care has been dictated by Susanne Garcia Nurse Practitioner as directed. Dr. Sandra MD I have performed a history and physical examination and medical decision making of this patient, discussed the same with the dictator, and agree with the dictators assessment and plan as written, documented as a scribe. Based on total visit time, I have performed more than 50% of this visit. Objective - Vital Signs Vital signs: Vital Signs Temp 98.6 F 03/13/23 19:16 Pulse 66 03/13/23 19:16 Resp 17 03/13/23 19:16 BP 138/85 03/13/23 19:16 Pulse Ox 99 03/13/23 19:16 FiO2 Intake & Output 03/13/23 03/13/23 03/14/23 06:59 18:59 06:59 Output Total 300 Balance -300 Output: Urine 300 Other: Voiding Method Toilet Urinal # Voids 2 - Labs CBC & Chem 7: 03/13/23 07:02 03/13/23 07:02 Labs: Abnormal Lab Results - Last 24 Hours (Table) 03/13/23 03/13/23 Range/Units 07:02 07:02 RBC 3.60 L (4.30-5.90) m/uL Hgb 9.1 L (13.0-17.5) gm/dL Hct 30.3 L (39.0-53.0) % MCHC 29.8 L (31.0-37.0) g/dL RDW 18.0 H (11.5-15.5) % Sodium 135 L (137-145) mmol/L BUN <2 L (9-20) mg/dL Creatinine 0.42 L (0.66-1.25) mg/dL Magnesium 1.2 L (1.6-2.3) mg/dL Assessment and Plan Time with Patient: Less than 30
[2023-03-13] MEDS: IBUPROFEN 400 MG TAB PO PRN (23:52)
[2023-03-14] MEDS: ONDANSETRON 4 MG TAB PO PRN ×2 (01:52→15:28)
[2023-03-14] MEDS: LORazepam 1 MG TAB PO PRN ×6 (01:53→21:29)
[2023-03-14] MEDS: PANTOPRAZOLE 40 MG TABLET PO SCH ×2 (06:02→15:28)
[2023-03-14] MEDS: hydrOXYzine HCL 10 MG TAB PO PRN ×2 (06:25→23:28)
[2023-03-14 07:14] LABS: Anisocytosis Slight; HCT 31.4 % (39.0-53.0); Hypochromasia Marked; MCH 24.9 pg (25.0-35.0); MCHC 28.6 g/dL (31.0-37.0); Mean Platelet Volume 8.4; Platelet Count 248 k/uL (150-450); Poikilocytosis Slight; RBC 3.61 m/uL (4.30-5.90); RDW 18.6 % (11.5-15.5); WBC 5.1 k/uL (3.8-10.6)
[2023-03-14] MEDS: levETIRAcetam 500 MG TAB PO SCH ×2 (07:38→21:28)
[2023-03-14] MEDS: THIAMINE 100 MG TAB PO SCH (07:38)
[2023-03-14] MEDS: METOPROLOL TARTRATE 25 MG TAB PO SCH ×2 (07:38→21:29)
[2023-03-14 07:39] LABS: African American GFR (CKD) >90 (>60 ml/min/1.73 sqM); Anion Gap 7 mmol/L; Blood Urea Nitrogen 9 mg/dL (9-20); Calcium 8.4 mg/dL (8.4-10.2); Carbon Dioxide 24 mmol/L (22-30); Chloride 104 mmol/L (98-107); Glucose 104 mg/dL (74-99); Magnesium 1.5 mg/dL (1.6-2.3); Non-African American GFR(CKD) >90 (>60 ml/min/1.73 sqM); Potassium 4.3 mmol/L (3.5-5.1); Sodium 135 mmol/L (137-145)
[2023-03-14] MEDS: NICOTINE 21MG/24HR PATCH TRANSDERM SCH (07:39)
[2023-03-14] MEDS: MAGNESIUM OXIDE 400 MG TAB PO SCH ×3 (07:39→21:29)
--- NOTE | 2023-03-14 13:02 | P.PN ---
Subjective Progress Note Date: 03/14/23 CHIEF COMPLAINT: Alcohol intoxication HISTORY OF PRESENT ILLNESS: Surgical service following in regards to melanotic stools. Patient has had no melanotic stools since hospitalization. Denies abdominal pain. Patient denies any vomiting. Does occasionally have nausea. He is still requiring Ativan for his was draws. Ports that he is doing better today. Hemoglobin stable at 9. Afebrile. Patient seen and examined with Dr. Vasquez PHYSICAL EXAM: VITAL SIGNS: Reviewed. GENERAL: Well-developed in no acute distress. ABDOMEN: Soft. Nondistended. Nontender. NEUROLOGIC: Alert and oriented. ASSESSMENT: 1. Alcohol intoxication with alcohol withdrawal 2. Anemia with black stools 3. Hypomagnesemia 4. Polysubstance abuse PLAN: -Patient scheduled for EGD on 03/17/[address] Vasquez -Continue [facility] protocol for alcohol withdrawal -Continue IV Protonix -Continue monitor hemoglobin -Continue monitor for any signs or symptoms of bleeding -Magnesium replacement per medicine service Physician Trestle Mechanic note has been reviewed by physician. Signing provider agrees with the documented findings, assessment, and plan of care. Objective - Vital Signs Vital signs: Vital Signs Temp 98.2 F 03/14/23 07:15 Pulse 88 03/14/23 07:15 Resp 16 03/14/23 07:15 BP 103/64 03/14/23 07:15 Pulse Ox 99 03/14/23 07:15 FiO2 Intake & Output 03/13/23 03/14/23 03/14/23 18:59 06:59 18:59 Output Total 300 Balance -300 Output: Urine 300 Other: Voiding Method Toilet Urinal # Voids 2 - Labs CBC & Chem 7: 03/14/23 06:33 03/14/23 06:33 Labs: Abnormal Lab Results - Last 24 Hours (Table) 03/14/23 03/14/23 Range/Units 06:33 06:33 RBC 3.61 L (4.30-5.90) m/uL Hgb 9.0 L (13.0-17.5) gm/dL Hct 31.4 L (39.0-53.0) % MCH 24.9 L (25.0-35.0) pg MCHC 28.6 L (31.0-37.0) g/dL RDW 18.6 H (11.5-15.5) % Sodium 135 L (137-145) mmol/L Creatinine 0.51 L (0.66-1.25) mg/dL Glucose 104 H (74-99) mg/dL Magnesium 1.5 L (1.6-2.3) mg/dL
[2023-03-14] MEDS: chlordiazePOXIDE 25 MG CAP PO PRN (13:19)
[2023-03-14] MEDS: IBUPROFEN 400 MG TAB PO PRN (15:28)
--- NOTE | 2023-03-14 21:22 | P.PN ---
Subjective Progress Note Date: 03/14/23 This is a 42 year old male with history of chronic alcohol abuse, alcohol withdrawal seizure, and opiate abuse, who presents to the emergency room intoxicated and is admitted for alcohol detox. Patient [facility] and was told he could not be admitted for rehab and patient was brought to the emergency room for impending alcohol withdrawal. Patient had blood alcohol level of 397 on admission, with drug toxicology positive for barbituates, benzodiazepines, marijuana. hemoglobin also low at 9.9 with no other levels to compare too, his MCV is normal. Magnesium was 1.3 and also replaced. Patient is hemodynamically stable. He has been started on ativan CIWA protocol and admitted to medical floor. This morning he is refusing lab draws. 03/12/2023 Patient today is doing well requiring less ativan, tremors have improved. He denies any nausea/ vomiting but has not been able to tolerate much oral intake secondary to abdominal pain which is tender over the epigastric area. He does report having black stools a few days ago which he had denied yesterday. Per [facility] patient is unable to return unless he is cleared by GI services which currently unavailable in the hospital this admission. Hemoglobin today is currently pending. Sodium today is 134, magnesium 1.2. Patient lost IV access and difficult to obtain he is pending a midline today to continue with the IV fluids and replace his magnesium. He reports feeling weak also. 03/13/2023 Patient evaluated today he is resting in bed. His mentation has improved today. He reports generalized aches and pains. States he was using suboxone not prescribed to him by a provider, states due to his alcoholism his doctor will no longer prescribe it to him. He is agreeing again for midline placement and order is placed. Magnesium will be replaced once patient receives IV access. No bowel movement overnight. Labs today show hemoglobin of 9.1, platelets of 286. Sodium of 135, magnesium 1.2. 03/14/2023 Patient is resting in bed. Received midline yesterday and was able to receive 2 grams of IV magnesium. IV fluids were not infusing. IV access was lost again overnight. Patients labs today showing sodium of 135, magnesium of 1.5. Oral magnesium oral zofran and oral ativan CIWA protocol are continued. Midline is ordered. Patient unable to tolerate much oral intake. Review of Systems Constitutional: Reports fatigue denied any fever.Reports generalized aches. Cardio vascular: denied any chest pain, palpitations Gastrointestinal: denied any nausea, vomiting. Denies any further black stool. Pulmonary: Denied any shortness of breath cough Neurologic denied any new focal deficits All inpatient medications were reviewed and appropriate changes in these medications as dictated in the interval history and assessment and plan. PHYSICAL EXAMINATION: GENERAL: The patient is alert and oriented x3, not in any acute distress. Well developed, well nourished. Fatigued HEENT: Pupils are round and equally reacting to light. EOMI. No scleral icterus. No conjunctival pallor. Normocephalic, atraumatic. No pharyngeal erythema. No thyromegaly. CARDIOVASCULAR: S1 and S2 present. No murmurs, rubs, or gallops. PULMONARY: Chest is clear to auscultation, no wheezing or crackles. ABDOMEN: Soft, epigastric tenderness on palpation, nondistended, normoactive bowel sounds. No palpable organomegaly. MUSCULOSKELETAL: No joint swelling or deformity. EXTREMITIES: No cyanosis, clubbing, or pedal edema. NEUROLOGICAL: Gross neurological examination did not reveal any focal deficits. Generalized weakness. SKIN: No rashes. Assessment Acute alcohol intoxication with acute alcohol withdrawal improving Dark stool and epigastric pain rule out acute GIB Anemia, normocytic Hypomagnesemia Polysubstance abuse History of seizure disorder from close head injury in 2010 History of alcohol withdrawal seizure Chronic and ongoing nicotine use History of hypertension Anxiety/Depression/Schizophrenia GI prophylaxis DVT prophylaxis Full Code Plan Obtain IV access to continue with IV fluids Replace magnesium oral 400 mg TID Continue ativan CIWA protocol and oral librium as needed Patient is scheduled to undergo EGD on friday Continue supportive care and return to [place] when medically stable. The impression and plan of care has been dictated by Susanne Garcia Nurse Practitioner as directed. Dr. Sandra MD I have performed a history and physical examination and medical decision making of this patient, discussed the same with the dictator, and agree with the dictators assessment and plan as written, documented as a scribe. Based on total visit time, I have performed more than 50% of this visit. Objective - Vital Signs Vital signs: Vital Signs Temp 98.3 F 03/14/23 13:40 Pulse 79 03/14/23 13:40 Resp 16 03/14/23 13:40 BP 141/63 03/14/23 13:40 Pulse Ox 99 03/14/23 13:40 FiO2 Intake & Output 03/13/23 03/14/23 03/14/23 18:59 06:59 18:59 Output Total 300 Balance -300 Output: Urine 300 Other: Voiding Method Toilet Urinal # Voids 2 - Labs CBC & Chem 7: 03/14/23 06:33 03/14/23 06:33 Labs: Abnormal Lab Results - Last 24 Hours (Table) 03/14/23 03/14/23 Range/Units 06:33 06:33 RBC 3.61 L (4.30-5.90) m/uL Hgb 9.0 L (13.0-17.5) gm/dL Hct 31.4 L (39.0-53.0) % MCH 24.9 L (25.0-35.0) pg MCHC 28.6 L (31.0-37.0) g/dL RDW 18.6 H (11.5-15.5) % Sodium 135 L (137-145) mmol/L Creatinine 0.51 L (0.66-1.25) mg/dL Glucose 104 H (74-99) mg/dL Magnesium 1.5 L (1.6-2.3) mg/dL Assessment and Plan Time with Patient: Less than 30
[2023-03-14] MEDS: QUEtiapine 50 MG TAB PO SCH (21:29)
[2023-03-14] MEDS: PROMETHAZINE 25 MG TAB PO PRN (21:29)
[2023-03-15] MEDS: LORazepam 1 MG TAB PO PRN ×5 (02:09→20:56)
[2023-03-15 05:24] LABS: African American GFR (CKD) >90 (>60 ml/min/1.73 sqM); Anion Gap 9 mmol/L; Blood Urea Nitrogen 10 mg/dL (9-20); Calcium 8.9 mg/dL (8.4-10.2); Carbon Dioxide 24 mmol/L (22-30); Chloride 102 mmol/L (98-107); Glucose 103 mg/dL (74-99); Magnesium 1.6 mg/dL (1.6-2.3); Non-African American GFR(CKD) >90 (>60 ml/min/1.73 sqM); Potassium 4.5 mmol/L (3.5-5.1); Sodium 135 mmol/L (137-145)
[2023-03-15] MEDS: chlordiazePOXIDE 25 MG CAP PO PRN ×2 (05:33→17:04)
[2023-03-15] MEDS: PANTOPRAZOLE 40 MG TABLET PO SCH ×2 (05:33→20:58)
[2023-03-15] MEDS: IBUPROFEN 400 MG TAB PO PRN (05:37)
[2023-03-15] MEDS: levETIRAcetam 500 MG TAB PO SCH ×2 (08:05→20:57)
[2023-03-15] MEDS: MAGNESIUM OXIDE 400 MG TAB PO SCH ×3 (08:05→20:58)
[2023-03-15] MEDS: THIAMINE 100 MG TAB PO SCH (08:05)
[2023-03-15] MEDS: METOPROLOL TARTRATE 25 MG TAB PO SCH ×2 (08:05→20:58)
[2023-03-15] MEDS: ACETAMINOPHEN TAB 325 MG TAB PO PRN (08:05)
[2023-03-15] MEDS: NICOTINE 21MG/24HR PATCH TRANSDERM SCH (08:05)
--- NOTE | 2023-03-15 08:09 | XR ---
EXAMINATION TYPE: XR chest 1V portable DATE OF EXAM: 03/15/2023 8:00 AM COMPARISON: None TECHNIQUE: XR chest 1V portable Frontal view of the chest. CLINICAL INDICATION:Male, 42 years old with history of Dyspnea; FINDINGS: Lungs/Pleura: There is no evidence of pleural effusion, focal consolidation, or pneumothorax. Pulmonary vascularity: Unremarkable. Heart/mediastinum: Cardiomediastinal silhouette is unremarkable. Musculoskeletal: No acute osseous pathology. IMPRESSION: No acute cardiopulmonary disease/process.
[2023-03-15] MEDS ORDERED: Acetaminophen-Codeine 300-30mg TAB PO STA (08:15)
--- NOTE | 2023-03-15 09:36 | P.CNPUL ---
History of Present Illness Consult date: 03/15/23 Requesting physician: Scotty Flores Reason for consult: pneumonia Chief complaint: Anxiety and delirium tremens History of present illness: This is a 42-year-old male patient with a history of hypertension, alcohol withdrawal seizures, anxiety/depression, schizophrenia, opioid and alcohol a ddiction. He presented to the emergency room on 03/10/2023 with stress and possible seizure and alcohol intoxication. His serum alcohol level was 397. Urine drug screen was positive for barbiturates, benzodiazepines, marijuana. He also has been having issues with a black tarry stools and there is plans for EGD on 03/17/2023. We're consulted today as the patient that he was being treated for pneumonia prior to his arrival. He is seen on the regular medical floor. Currently sitting up at the bedside. Awake and alert in no acute distress. He is maintaining O2 saturations up to 100% on room air. He's been afebrile. Hemodynamically stable. Most recent hemoglobin 9.0. Platelets 248. Sodium 135. Potassium 4.5. Bicarb 24. BUN 10. Creatinine 0.48. Glucose 103. Today's chest x-ray shows no acute pulmonary process. Review of Systems REVIEW OF SYSTEMS: CONSTITUTIONAL: Pending alcohol withdrawal syndrome. Denies any recent significant weight loss or weight gain. EYES: Denies change in vision. EARS, NOSE, MOUTH, THROAT: Denies headaches, denies sore throat. CARDIOVASCULAR: Denies chest pain, palpitations or syncopal episodes. RESPIRATORY: Denies shortness of breath, cough, congestion or hemoptysis. GASTROINTESTINAL: Denies change in appetite, denies abdominal pain GENITOURINARY: Denies hematuria, denies infections. MUSKULOSKELETAL: Denies pain, denies swelling. INTEGUMENTARY: Denies rash, denies eczema. NEUROLOGICAL: Denies recent memory loss, no recent seizure activity. PSYCHIATRIC: Positive for anxiety. HEMATOLOGIC/LYMPHATIC: Denies anemia, denies enlarged lymph nodes. Past Medical History Past Medical History: Hypertension, Seizure Disorder Additional Past Medical History / Comment(s): closed head injury 2010, hx drug and alcohol abuse History of Any Multi-Drug Resistant Organisms: None Reported Past Surgical History: No Surgical Hx Reported Past Psychological History: Anxiety, Depression, Schizophrenia Smoking Status: Current every day smoker Past Alcohol Use History: Daily, Heavy Past Drug Use History: None Reported Medications and Allergies Home Medications Medication Instructions Recorded Confirmed Type Acetaminophen Tab [Tylenol] 650 mg PO Q6H PRN 03/10/23 03/10/23 History Folic Acid 1 mg PO DAILY 03/10/23 03/10/23 History High Potency Multivitamin With Iron 1 tab PO DAILY 03/10/23 03/10/23 History Magnesium Oxide [Magox 400] 400 mg PO DAILY 03/10/23 03/10/23 History Metoprolol Tartrate [Lopressor] 25 mg PO BID 03/10/23 03/10/23 History Nicotine 21Mg/24Hr Patch [Habitrol] 1 patch TRANSDERM DAILY PRN 03/10/23 03/10/23 History Ondansetron Odt [Zofran Odt] 4 mg PO TID PRN 03/10/23 03/10/23 History Pantoprazole [Protonix] 40 mg PO BID 03/10/23 03/10/23 History QUEtiapine [SEROquel] 50 mg PO HS 03/10/23 03/10/23 History Thiamine [Vitamin B-1] 100 mg PO DAILY 03/10/23 03/10/23 History levETIRAcetam [Keppra] 1,000 mg PO BID 03/10/23 03/10/23 History Allergies Allergy/AdvReac Type Severity Reaction Status Date / Time aspirin Allergy Unknown Unknown Verified 03/10/23 16:38 Childhood Penicillins Allergy Unknown Unknown Verified 03/10/23 16:38 Childhood Physical Exam Vitals: Vital Signs Temp Pulse Resp BP Pulse Ox 03/15/23 07:55 98.3 F 89 18 122/77 100 03/15/23 01:43 98.8 F 83 16 102/67 99 03/14/23 20:00 86 18 03/14/23 19:03 99.1 F 86 18 99/64 99 03/14/23 13:40 98.3 F 79 16 141/63 99 Intake and Output 03/14/23 03/15/23 03/15/23 22:59 06:59 14:59 Other: Voiding Method Toilet Urinal # Voids 1 2 GENERAL EXAM: Alert, 42-year-old male, on room air, comfortable in no apparent distress. HEAD: Normocephalic. EYES: Normal reaction of pupils, equal size. NOSE: Clear with pink turbinates. THROAT: No erythema or exudates. NECK: No masses, no JVD. CHEST: No chest wall deformity. LUNGS: Equal air entry with no crackles, wheeze, rhonchi or dullness. CVS: S1 and S2 normal with no audible murmur, regular rhythm. ABDOMEN: No hepatosplenomegaly, normal bowel sounds, no guarding or rigidity. SPINE: No scoliosis or deformity SKIN: No rashes CENTRAL NERVOUS SYSTEM: No focal deficits, tone is normal in all 4 extremities. EXTREMITIES: There is no peripheral edema. No clubbing, no cyanosis. Peripheral pulses are intact. Results - Laboratory Findings CBC and BMP: 03/14/23 06:33 03/15/23 04:38 Abnormal lab findings: Abnormal Labs 03/10/23 03/10/23 03/10/23 13:08 13:08 13:12 WBC 3.4 L RBC 3.80 L Hgb 9.9 L Hct 31.4 L MCH MCHC RDW 18.3 H Plt Count 456 H Plt Count Comment Sodium Carbon Dioxide 20 L BUN 4 L Creatinine 0.51 L Glucose Calcium 8.1 L Magnesium 1.3 L Ur Barbiturates Screen Detected H U Benzodiazepines Scrn Detected H U Marijuana (THC) Screen Detected H Serum Alcohol 397 H* 03/12/23 03/12/23 03/13/23 11:21 11:21 07:02 WBC RBC 3.49 L 3.60 L Hgb 8.9 L 9.1 L Hct 30.9 L 30.3 L MCH 25.5 L MCHC 28.8 L 29.8 L RDW 18.9 H 18.0 H Plt Count 104 L Plt Count Comment DECREASED A Sodium 134 L Carbon Dioxide BUN <2 L Creatinine 0.47 L Glucose Calcium Magnesium 1.2 L Ur Barbiturates Screen U Benzodiazepines Scrn U Marijuana (THC) Screen Serum Alcohol 03/13/23 03/14/23 03/14/23 07:02 06:33 06:33 WBC RBC 3.61 L Hgb 9.0 L Hct 31.4 L MCH 24.9 L MCHC 28.6 L RDW 18.6 H Plt Count Plt Count Comment Sodium 135 L 135 L Carbon Dioxide BUN <2 L Creatinine 0.42 L 0.51 L Glucose 104 H Calcium Magnesium 1.2 L 1.5 L Ur Barbiturates Screen U Benzodiazepines Scrn U Marijuana (THC) Screen Serum Alcohol 03/15/23 04:38 WBC RBC Hgb Hct MCH MCHC RDW Plt Count Plt Count Comment Sodium 135 L Carbon Dioxide BUN Creatinine 0.48 L Glucose 103 H Calcium Magnesium Ur Barbiturates Screen U Benzodiazepines Scrn U Marijuana (THC) Screen Serum Alcohol - Diagnostic Findings Chest x-ray: image reviewed (No acute pulmonary process) Assessment and Plan Assessment: Acute alcohol intoxication with a presenting serum alcohol level of 397 on 03/10/2023 History of opioid addiction. Urine drug screen positive for barbiturates, benzodiazepines, marijuana Anemia secondary to suspected upper GI bleeding with black tarry stools plan is for EGD on 03/17/2023 History of possible pneumonia in the outpatient setting, chest x-ray reveals no acute pulmonary process here. Stable and on room air. History of hypertension History of previous seizure post-alcohol withdrawal History of anxiety/depression History of schizophrenia Plan: The patient was seen and evaluated Chest x-ray, labs and medications reviewed No evidence of pneumonia Stable and on room air Remains in the CIWA protocol Plan is for EGD on 03/17/2023 Plan is possible transfer to [facility] on discharge We will continue to follow and make further recommendations based on his clinical status I have personally seen and examined the patient, performed the documentation and the assessment and plan as written. Number of minutes spent on the visit: 20.
[2023-03-15] MEDS: ONDANSETRON 4 MG TAB PO PRN (10:27)
[2023-03-15 12:41] VITALS: BMI 22.3
--- NOTE | 2023-03-15 14:33 | P.PN ---
Subjective Progress Note Date: 03/15/23 This is a 42 year old male with history of chronic alcohol abuse, alcohol withdrawal seizure, and opiate abuse, who presents to the emergency room intoxicated and is admitted for alcohol detox. Patient states he arrived to [facility] and was told he could not be admitted for rehab and patient was brought to the emergency room for impending alcohol withdrawal. Patient had blood alcohol level of 397 on admission, with drug toxicology positive for barbituates, benzodiazepines, marijuana. hemoglobin also low at 9.9 with no other levels to compare too, his MCV is normal. Magnesium was 1.3 and also replaced. Patient is hemodynamically stable. He has been started on ativan CIWA protocol and admitted to medical floor. This morning he is refusing lab draws. 03/12/2023 Patient today is doing well requiring less ativan, tremors have improved. He denies any nausea/ vomiting but has not been able to tolerate much oral intake secondary to abdominal pain which is tender over the epigastric area. He does report having black stools a few days ago which he had denied yesterday. Per [place] patient is unable to return unless he is cleared by GI services which currently unavailable in the hospital this admission. Hemoglobin today is currently pending. Sodium today is 134, magnesium 1.2. Patient lost IV access and difficult to obtain he is pending a midline today to continue with the IV fluids and replace his magnesium. He reports feeling weak also. 03/13/2023 Patient evaluated today he is resting in bed. His mentation has improved today. He reports generalized aches and pains. States he was using suboxone not prescribed to him by a provider, states due to his alcoholism his doctor will no longer prescribe it to him. He is agreeing again for midline placement and order is placed. Magnesium will be replaced once patient receives IV access. No bowel movement overnight. Labs today show hemoglobin of 9.1, platelets of 286. Sodium of 135, magnesium 1.2. 03/14/2023 Patient is resting in bed. Received midline yesterday and was able to receive 2 grams of IV magnesium. IV fluids were not infusing. IV access was lost again overnight. Patients labs today showing sodium of 135, magnesium of 1.5. Oral magnesium oral zofran and oral ativan CIWA protocol are continued. Midline is ordered. Patient unable to tolerate much oral intake. 5/6. Patient seen and examined. Sodium this morning is 135, potassium 4.5, BUN 10, creatinine 0.48, magnesium 1.6 . No further episodes of nausea and vomiting REVIEW OF SYSTEMS: CONSTITUTIONAL: No fever, no malaise,. CARDIOVASCULAR: No chest pain, no palpitations, no syncope. PULMONARY: No shortness of breath, no cough, GASTROINTESTINAL: No diarrhea, no nausea, no vomiting, no abdominal pain. NEUROLOGICAL: No headaches, no weakness, PHYSICAL EXAMINATION: GENERAL: The patient is alert and oriented x3, not in any acute distress. Well developed, well nourished. HEENT: Pupils are round and equally reacting to light. EOMI. No scleral icterus. No conjunctival pallor. Normocephalic, atraumatic. No pharyngeal erythema. No thyromegaly. CARDIOVASCULAR: S1 and S2 present. No murmurs, rubs, or gallops. PULMONARY: Chest is clear to auscultation, no wheezing or crackles. ABDOMEN: Soft, nontender, nondistended, normoactive bowel sounds. No palpable organomegaly. MUSCULOSKELETAL: No joint swelling or deformity. EXTREMITIES: No cyanosis, clubbing, or pedal edema. NEUROLOGICAL: Gross neurological examination did not reveal any focal deficits. SKIN: No rashes. Assessment and plan Acute alcohol intoxication with acute alcohol withdrawal improving Dark stool and epigastric pain rule out acute GIB Anemia, normocytic Hypomagnesemia Polysubstance abuse History of seizure disorder from close head injury in 2010 History of alcohol withdrawal seizure Chronic and ongoing nicotine use History of hypertension Anxiety/Depression/Schizophrenia Plan; Monitor vital signs Monitor CBC Monitor CMP Continue telemetry monitoring Continue CIWA protocol Continue Keppra Continue Librium Continue oral Protonix Plan is for EGD on 03/17/2023 Plan is possible transfer to [facility] on discharge Objective - Vital Signs Vital signs: Vital Signs Temp 98.3 F 03/15/23 07:55 Pulse 89 03/15/23 07:55 Resp 18 03/15/23 07:55 BP 122/77 03/15/23 07:55 Pulse Ox 100 03/15/23 07:55 FiO2 Intake & Output 03/14/23 03/15/23 03/15/23 18:59 06:59 18:59 Other: Voiding Method Toilet Toilet Toilet Urinal Urinal Urinal # Voids 2 2 2 - Labs CBC & Chem 7: 03/14/23 06:33 03/15/23 04:38 Labs: Abnormal Lab Results - Last 24 Hours (Table) 03/15/23 Range/Units 04:38 Sodium 135 L (137-145) mmol/L Creatinine 0.48 L (0.66-1.25) mg/dL Glucose 103 H (74-99) mg/dL
[2023-03-15] MEDS: Acetaminophen-Codeine 300-30mg TAB PO PRN ×2 (17:04→23:44)
[2023-03-15] MEDS: QUEtiapine 50 MG TAB PO SCH (20:58)
--- NOTE | 2023-03-15 22:54 | P.PN ---
Subjective Progress Note Date: 03/15/23 CHIEF COMPLAINT: GI bleed HISTORY OF PRESENT ILLNESS: The patient is a 42-year-old male with GI bleed. He is resting comfortably. No new complaints. ROS: No reports of nausea and vomiting. No bowel movements. No fevers or chills. No new chest pain. No productive sputum PHYSICAL EXAM: VITAL SIGNS: Reviewed CONSTITUTIONAL: Well developed and in no acute distress. EYES: Conjuctivae without sclera icterus. Extraocular movements grossly intact. HEAD, EARS, NOSE, THROAT: Moist buccal mucosa. Head is atraumatic, normocephalic. Hears conversational speech. No nasal drainage. RESPIRATORY: Non-labored respirations and equal bilateral excursions. CARDIOVASCULAR: Palpable 2+ radial pulses. ABDOMEN: Nontender MUSCULOSKELETAL: No gross deformity of the lower extremities noted. No clubbi ng. No cyanosis. SKIN: Good skin turgor. Well perfused. NEUROLOGIC: Cranial nerves II through XII grossly intact. No focal or lateralizing signs. PSYCH: Appropriate affect. Alert and oriented to person, place and time. CLINICAL LABS: Reviewed. Hemoglobin 9.0, anemia ASSESSMENT: 1. Anemia 2. GI bleed PLAN: 1. Pending upper endoscopy due to GI and anemia Objective - Vital Signs Vital signs: Vital Signs Temp 98.3 F 03/15/23 07:55 Pulse 89 03/15/23 07:55 Resp 18 03/15/23 07:55 BP 122/77 03/15/23 07:55 Pulse Ox 100 03/15/23 07:55 FiO2 Intake & Output 03/14/23 03/15/23 03/15/23 18:59 06:59 18:59 Weight 72.575 kg Other: Voiding Method Toilet Toilet Toilet Urinal Urinal Urinal # Voids 2 2 2 - Labs CBC & Chem 7: 03/14/23 06:33 03/15/23 04:38 Labs: Abnormal Lab Results - Last 24 Hours (Table) 03/15/23 Range/Units 04:38 Sodium 135 L (137-145) mmol/L Creatinine 0.48 L (0.66-1.25) mg/dL Glucose 103 H (74-99) mg/dL
[2023-03-16] MEDS: chlordiazePOXIDE 25 MG CAP PO PRN ×3 (00:46→19:11)
[2023-03-16] MEDS: LORazepam 1 MG TAB PO PRN ×5 (00:47→21:57)
[2023-03-16] MEDS: ONDANSETRON ODT 4 MG TAB PO PRN ×2 (01:15→21:57)
[2023-03-16] MEDS: Acetaminophen-Codeine 300-30mg TAB PO PRN ×3 (04:35→17:04)
[2023-03-16] MEDS: PANTOPRAZOLE 40 MG TABLET PO SCH ×2 (04:35→17:04)
[2023-03-16] MEDS: levETIRAcetam 500 MG TAB PO SCH ×2 (07:49→21:57)
[2023-03-16] MEDS: METOPROLOL TARTRATE 25 MG TAB PO SCH ×2 (07:49→21:57)
[2023-03-16] MEDS: NICOTINE 21MG/24HR PATCH TRANSDERM SCH (07:49)
[2023-03-16] MEDS: MAGNESIUM OXIDE 400 MG TAB PO SCH ×3 (07:50→21:57)
[2023-03-16] MEDS: THIAMINE 100 MG TAB PO SCH (07:50)
--- NOTE | 2023-03-16 13:11 | P.PN ---
Subjective Progress Note Date: 03/16/23 This is a 42-year-old male patient with a history of hypertension, alcohol withdrawal seizures, anxiety/depression, schizophrenia, opioid and alcohol addiction. He presented to the emergency room on 03/10/2023 with stress and possible seizure and alcohol intoxication. His serum alcohol level was 397. U [facility] drug screen was positive for barbiturates, benzodiazepines, marijuana. He also has been having issues with a black tarry stools and there is plans for EGD on 03/17/2023. We're consulted today as the patient that he was being treated for pneumonia prior to his arrival. He is seen on the regular medical floor. Currently sitting up at the bedside. Awake and alert in no acute distress. He is maintaining O2 saturations up to 100% on room air. He's been afebrile. Hemodynamically stable. Most recent hemoglobin 9.0. Platelets 248. Sodium 135. Potassium 4.5. Bicarb 24. BUN 10. Creatinine 0.48. Glucose 103. Today's chest x-ray shows no acute pulmonary process. The patient is seen today 03/16/2023 in follow-up on the regular medical floor. He is currently up ambulating in his room. Awake and alert in no acute distress. Denies any worsening shortness of breath, cough or congestion. Maintaining good O2 saturations in the 90s on room air. No pulmonary complaints. He remains on the CIWA protocol. NicoDerm patch in place. The plan is for EGD tomorrow. Objective - Vital Signs Vital signs: Vital Signs Temp 98.6 F 03/16/23 07:16 Pulse 90 03/16/23 07:20 Resp 19 03/16/23 07:20 BP 124/76 03/16/23 07:16 Pulse Ox 97 03/16/23 07:16 FiO2 Intake & Output 03/15/23 03/16/23 03/16/23 18:59 06:59 18:59 Weight 72.575 kg Other: Voiding Method Toilet Toilet Toilet Urinal Urinal Urinal # Voids 2 2 1 # Bowel Movements 1 - Exam GENERAL EXAM: Alert, 42-year-old male, on room air, comfortable in no apparent distress. HEAD: Normocephalic. EYES: Normal reaction of pupils, equal size. NOSE: Clear with pink turbinates. THROAT: No erythema or exudates. NECK: No masses, no JVD. CHEST: No chest wall deformity. LUNGS: Equal air entry with no crackles, wheeze, rhonchi or dullness. CVS: S1 and S2 normal with no audible murmur, regular rhythm. ABDOMEN: No hepatosplenomegaly, normal bowel sounds, no guarding or rigidity. SPINE: No scoliosis or deformity SKIN: No rashes CENTRAL NERVOUS SYSTEM: No focal deficits, tone is normal in all 4 extremities. EXTREMITIES: There is no peripheral edema. No clubbing, no cyanosis. Peripheral pulses are intact. - Labs CBC & Chem 7: 03/14/23 06:33 03/15/23 04:38 Assessment and Plan Assessment: Acute alcohol intoxication with a presenting serum alcohol level of 397 on 03/10/2023 History of opioid addiction. Urine drug screen positive for barbiturates, benzodiazepines, marijuana Anemia secondary to suspected upper GI bleeding with black tarry stools plan is for EGD on 03/17/2023 History of possible pneumonia in the outpatient setting, chest x-ray reveals no acute pulmonary process here. Stable and on room air. History of hypertension History of previous seizure post-alcohol withdrawal History of anxiety/depression History of schizophrenia Plan: The patient was seen and evaluated Medications reviewed Stable and on room air Remains in the [place] protocol Plan is for EGD on 03/17/2023 Plan is possible transfer to [place] on discharge We will follow as needed I have personally seen and examined the patient, performed the documentation and the assessment and plan as written. Number of minutes spent on the visit: 10.
--- NOTE | 2023-03-16 13:57 | P.PN ---
Subjective Progress Note Date: 03/16/23 This is a 42 year old male with history of chronic alcohol abuse, alcohol withdrawal seizure, and opiate abuse, who presents to the emergency room intoxicated and is admitted for alcohol detox. Patient states he arrived to [facility] for rest[facility] and was told he could not be admitted for rehab and patient was brought to the emergency room for impending alcohol withdrawal. Patient had blood alcohol level of 397 on admission, with drug toxicology positive for barbituates, benzodiazepines, marijuana. hemoglobin also low at 9.9 with no other levels to compare too, his MCV is normal. Magnesium was 1.3 and also replaced. Patient is hemodynamically stable. He has been started on ativan CIWA protocol and admitted to medical floor. This morning he is refusing lab draws. 03/12/2023 Patient today is doing well requiring less ativan, tremors have improved. He denies any nausea/ vomiting but has not been able to tolerate much oral intake secondary to abdominal pain which is tender over the epigastric area. He does report having black stools a few days ago which he had denied yesterday. Per [place] patient is unable to return unless he is cleared by GI services which currently unavailable in the hospital this admission. Hemoglobin today is currently pending. Sodium today is 134, magnesium 1.2. Patient lost IV access and difficult to obtain he is pending a midline today to continue with the IV fluids and replace his magnesium. He reports feeling weak also. 03/13/2023 Patient evaluated today he is resting in bed. His mentation has improved today. He reports generalized aches and pains. States he was using suboxone not prescribed to him by a provider, states due to his alcoholism his doctor will no longer prescribe it to him. He is agreeing again for midline placement and order is placed. Magnesium will be replaced once patient receives IV access. No bowel movement overnight. Labs today show hemoglobin of 9.1, platelets of 286. Sodium of 135, magnesium 1.2. 03/14/2023 Patient is resting in bed. Received midline yesterday and was able to receive 2 grams of IV magnesium. IV fluids were not infusing. IV access was lost again overnight. Patients labs today showing sodium of 135, magnesium of 1.5. Oral magnesium oral zofran and oral ativan CIWA protocol are continued. Midline is ordered. Patient unable to tolerate much oral intake. 5/6. Patient seen and examined. Sodium this morning is 135, potassium 4.5, BUN 10, creatinine 0.48, magnesium 1.6 . No further episodes of nausea and vomiting 03/16. Patient seen and examined. No lab work this morning. Vital signs stable REVIEW OF SYSTEMS: CONSTITUTIONAL: No fever, no malaise,. CARDIOVASCULAR: No chest pain, no palpitations, no syncope. PULMONARY: No shortness of breath, no cough, GASTROINTESTINAL: No diarrhea, no nausea, no vomiting, no abdominal pain. NEUROLOGICAL: No headaches, no weakness, PHYSICAL EXAMINATION: GENERAL: The patient is alert and oriented x3, not in any acute distress. Well developed, well nourished. HEENT: Pupils are round and equally reacting to light. EOMI. No scleral icterus. No conjunctival pallor. Normocephalic, atraumatic. No pharyngeal erythema. No thyromegaly. CARDIOVASCULAR: S1 and S2 present. No murmurs, rubs, or gallops. PULMONARY: Chest is clear to auscultation, no wheezing or crackles. ABDOMEN: Soft, nontender, nondistended, normoactive bowel sounds. No palpable organomegaly. MUSCULOSKELETAL: No joint swelling or deformity. EXTREMITIES: No cyanosis, clubbing, or pedal edema. NEUROLOGICAL: Gross neurological examination did not reveal any focal deficits. SKIN: No rashes. Assessment and plan Acute alcohol intoxication with acute alcohol withdrawal improving Dark stool and epigastric pain rule out acute GIB Anemia, normocytic Hypomagnesemia Polysubstance abuse History of seizure disorder from close head injury in 2010 History of alcohol withdrawal seizure Chronic and ongoing nicotine use History of hypertension Anxiety/Depression/Schizophrenia Plan; Monitor vital signs Monitor CBC Monitor CMP Continue telemetry monitoring Continue CIWA protocol Continue Keppra Continue Librium Continue oral Protonix Plan is for EGD on 03/17/2023 Plan is possible transfer to [place] [facility] on discharge Objective - Vital Signs Vital signs: Vital Signs Temp 98.6 F 03/16/23 07:16 Pulse 90 03/16/23 07:20 Resp 19 03/16/23 07:20 BP 124/76 03/16/23 07:16 Pulse Ox 97 03/16/23 07:16 FiO2 Intake & Output 03/15/23 03/16/23 03/16/23 18:59 06:59 18:59 Weight 72.575 kg Other: Voiding Method Toilet Toilet Toilet Urinal Urinal Urinal # Voids 2 2 1 # Bowel Movements 1 - Labs CBC & Chem 7: 03/14/23 06:33 03/15/23 04:38
[2023-03-16] MEDS: SODIUM CHLORIDE 0.9% 1,000 ML IV SCH ×3 (19:34→19:43)
[2023-03-16] MEDS: QUEtiapine 50 MG TAB PO SCH (21:57)
--- NOTE | 2023-03-17 01:00 | P.PN ---
Subjective Progress Note Date: 03/16/23 CHIEF COMPLAINT: GI bleed HISTORY OF PRESENT ILLNESS: The patient is a 42-year-old male with GI bleed. He is resting comfortably. No new complaints. He did have a bowel movement earlier today. No reports of blood in stools. ROS: No reports of nausea and vomiting. No fevers or chills. No new chest pain. No productive sputum PHYSICAL EXAM: VITAL SIGNS: Reviewed CONSTITUTIONAL: Well developed and in no acute distress. EYES: Conjuctivae without sclera icterus. Extraocular movements grossly intact. HEAD, EARS, NOSE, THROAT: Moist buccal mucosa. Head is atraumatic, normocephalic. Hears conversational speech. No nasal drainage. RESPIRATORY: Non-labored respirations and equal bilateral excursions. CARDIOVASCULAR: Palpable 2+ radial pulses. ABDOMEN: Nontender MUSCULOSKELETAL: No gross deformity of the lower extremities noted. No clubbing. No cyanosis. SKIN: Good skin turgor. Well perfused. NEUROLOGIC: Cranial nerves II through XII grossly intact. No focal or lateralizing signs. PSYCH: Appropriate affect. Alert and oriented to person, place and time. CLINICAL LABS: Reviewed. ASSESSMENT: 1. Anemia 2. GI bleed PLAN: 1. Recommend upper and lower endoscopy for GI bleed assessment Objective - Vital Signs Vital signs: Vital Signs Temp 98.2 F 03/16/23 20:00 Pulse 73 03/16/23 20:00 Resp 17 03/16/23 20:00 BP 102/65 03/16/23 20:00 Pulse Ox 99 03/16/23 20:00 FiO2 Intake & Output 03/16/23 03/16/23 03/17/23 06:59 18:59 06:59 Intake Total 650 Balance 650 Intake: Oral 650 Other: Voiding Method Toilet Toilet Toilet Urinal Urinal Urinal # Voids 2 2 # Bowel Movements 1 - Labs CBC & Chem 7: 03/14/23 06:33 03/15/23 04:38
[2023-03-17] MEDS: LORazepam 1 MG TAB PO PRN ×5 (01:23→14:35)
[2023-03-17] MEDS: Acetaminophen-Codeine 300-30mg TAB PO PRN ×3 (01:27→14:35)
[2023-03-17] MEDS: chlordiazePOXIDE 25 MG CAP PO PRN ×2 (03:37→11:33)
[2023-03-17] MEDS: hydrOXYzine HCL 10 MG TAB PO PRN ×2 (04:07→17:13)
[2023-03-17] MEDS: MAGNESIUM OXIDE 400 MG TAB PO SCH ×3 (08:34→20:58)
[2023-03-17] MEDS: PANTOPRAZOLE 40 MG TABLET PO SCH ×2 (08:34→16:59)
[2023-03-17] MEDS: METOPROLOL TARTRATE 25 MG TAB PO SCH ×2 (08:34→20:58)
[2023-03-17] MEDS: THIAMINE 100 MG TAB PO SCH (08:34)
[2023-03-17] MEDS: NICOTINE 21MG/24HR PATCH TRANSDERM SCH (08:34)
[2023-03-17] MEDS: levETIRAcetam 500 MG TAB PO SCH ×2 (08:34→20:57)
[2023-03-17 09:23] LABS: Anisocytosis Slight; HCT 33.2 % (39.0-53.0); HGB 9.7 gm/dL (13.0-17.5); Hypochromasia Marked; MCH 25.3 pg (25.0-35.0); MCHC 29.2 g/dL (31.0-37.0); MCV 86.7 fL (80.0-100.0); Platelet Count 205 k/uL (150-450); Poikilocytosis Slight; RBC 3.83 m/uL (4.30-5.90); WBC 5.6 k/uL (3.8-10.6)
[2023-03-17 09:47] LABS: ALT 10 U/L (4-49); AST 29 U/L (17-59); African American GFR (CKD) >90 (>60 ml/min/1.73 sqM); Albumin 3.9 g/dL (3.5-5.0); Albumin/Globulin Ratio 1.4; Alkaline Phosphatase 76 U/L (38-126); Anion Gap 10 mmol/L; Blood Urea Nitrogen 13 mg/dL (9-20); Calcium 9.2 mg/dL (8.4-10.2); Carbon Dioxide 22 mmol/L (22-30); Chloride 104 mmol/L (98-107); Globulin 2.8 g/dL; Glucose 93 mg/dL (74-99); Non-African American GFR(CKD) >90 (>60 ml/min/1.73 sqM); Potassium 4.3 mmol/L (3.5-5.1); Sodium 136 mmol/L (137-145); Total Bilirubin 0.3 mg/dL (0.2-1.3); Total Protein 6.7 g/dL (6.3-8.2)
--- NOTE | 2023-03-17 13:33 | P.PN ---
Subjective Progress Note Date: 03/17/23 This is a 42 year old male with history of chronic alcohol abuse, alcohol withdrawal seizure, and opiate abuse, who presents to the emergency room intoxicated and is admitted for alcohol detox. Patient states he arrived to [facility] and was told he could not be admitted for rehab and patient was brought to the emergency room for impending alcohol withdrawal. Patient had blood alcohol level of 397 on admission, with drug toxicology positive for barbituates, benzodiazepines, marijuana. hemoglobin also low at 9.9 with no other levels to compare too, his MCV is normal. Magnesium was 1.3 and also replaced. Patient is hemodynamically stable. He has been started on ativan CIWA protocol and admitted to medical floor. This morning he is refusing lab draws. 03/12/2023 Patient today is doing well requiring less ativan, tremors have improved. He denies any nausea/ vomiting but has not been able to tolerate much oral intake secondary to abdominal pain which is tender over the epigastric area. He does report having black stools a few days ago which he had denied yesterday. Per [place] patient is unable to return unless he is cleared by GI services which currently unavailable in the hospital this admission. Hemoglobin today is currently pending. Sodium today is 134, magnesium 1.2. Patient lost IV access and difficult to obtain he is pending a midline today to continue with the IV fluids and replace his magnesium. He reports feeling weak also. 03/13/2023 Patient evaluated today he is resting in bed. His mentation has improved today. He reports generalized aches and pains. States he was using suboxone not prescribed to him by a provider, states due to his alcoholism his doctor will no longer prescribe it to him. He is agreeing again for midline placement and order is placed. Magnesium will be replaced once patient receives IV access. No bowel movement overnight. Labs today show hemoglobin of 9.1, platelets of 286. Sodium of 135, magnesium 1.2. 03/14/2023 Patient is resting in bed. Received midline yesterday and was able to receive 2 grams of IV magnesium. IV fluids were not infusing. IV access was lost again overnight. Patients labs today showing sodium of 135, magnesium of 1.5. Oral magnesium oral zofran and oral ativan CIWA protocol are continued. Midline is ordered. Patient unable to tolerate much oral intake. 5/6. Patient seen and examined. Sodium this morning is 135, potassium 4.5, BUN 10, creatinine 0.48, magnesium 1.6 . No further episodes of nausea and vomiting 03/16. Patient seen and examined. No lab work this morning. Vital signs stable 03/17. Patient seen and examined. Denies any lightheadedness or dizziness. Hemoglobin this morning is 9.7. Platelet count 205 REVIEW OF SYSTEMS: CONSTITUTIONAL: No fever, no malaise,. CARDIOVASCULAR: No chest pain, no palpitations, no syncope. PULMONARY: No shortness of breath, no cough, GASTROINTESTINAL: No diarrhea, no nausea, no vomiting, no abdominal pain. NEUROLOGICAL: No headaches, no weakness, PHYSICAL EXAMINATION: GENERAL: The patient is alert and oriented x3, not in any acute distress. Well developed, well nourished. HEENT: Pupils are round and equally reacting to light. EOMI. No scleral icterus. No conjunctival pallor. Normocephalic, atraumatic. No pharyngeal erythema. No thyromegaly. CARDIOVASCULAR: S1 and S2 present. No murmurs, rubs, or gallops. PULMONARY: Chest is clear to auscultation, no wheezing or crackles. ABDOMEN: Soft, nontender, nondistended, normoactive bowel sounds. No palpable organomegaly. MUSCULOSKELETAL: No joint swelling or deformity. EXTREMITIES: No cyanosis, clubbing, or pedal edema. NEUROLOGICAL: Gross neurological examination did not reveal any focal deficits. SKIN: No rashes. Assessment and plan Acute alcohol intoxication with acute alcohol withdrawal improving Dark stool and epigastric pain rule out acute GIB Anemia, normocytic Hypomagnesemia Polysubstance abuse History of seizure disorder from close head injury in 2010 History of alcohol withdrawal seizure Chronic and ongoing nicotine use History of hypertension Anxiety/Depression/Schizophrenia Plan; Monitor vital signs Monitor CBC Monitor CMP Continue telemetry monitoring Continue CIWA protocol Continue Keppra Continue Librium Continue oral Protonix Currently nothing by mouth for EGD and colonoscopy today Plan is possible transfer to [facility] on discharge Objective - Vital Signs Vital signs: Vital Signs Temp 98.7 F 03/17/23 07:11 Pulse 79 03/17/23 07:11 Resp 18 03/17/23 07:11 BP 101/68 03/17/23 07:11 Pulse Ox 100 03/17/23 07:11 FiO2 Intake & Output 03/16/23 03/17/23 03/17/23 18:59 06:59 18:59 Intake Total 650 Balance 650 Intake: Oral 650 Other: Voiding Method Toilet Toilet Toilet Urinal Urinal Urinal # Voids 2 3 # Bowel Movements 1 - Labs CBC & Chem 7: 03/17/23 09:15 03/17/23 09:15 Labs: Abnormal Lab Results - Last 24 Hours (Table) 03/17/23 03/17/23 Range/Units 09:15 09:15 RBC 3.83 L (4.30-5.90) m/uL Hgb 9.7 L (13.0-17.5) gm/dL Hct 33.2 L (39.0-53.0) % MCHC 29.2 L (31.0-37.0) g/dL RDW 18.0 H (11.5-15.5) % Sodium 136 L (137-145) mmol/L Creatinine 0.53 L (0.66-1.25) mg/dL
[2023-03-17] MEDS: LORazepam 2 MG/ML INJ IV PRN ×2 (14:29→20:58)
[2023-03-17] MEDS ORDERED: LIDOCAINE 2% INJ 20 MG/ML (2 ML VIAL) ONE (15:23)
[2023-03-17] MEDS ORDERED: fentaNYL (PF) 50 MCG/ML 2 ML AMP ONE (15:23)
[2023-03-17] MEDS ORDERED: PROPOFOL 10 MG/ML 20 ML VIAL IV ONE (15:23)
[2023-03-17] MEDS ORDERED: MIDAZOLAM 2 MG/2 ML VIAL ONE (15:23)
[2023-03-17] MEDS ORDERED: SODIUM CHLORIDE 0.9% 1,000 ML IV ONE (16:18)
--- NOTE | 2023-03-17 16:30 | P.OP ---
Date of Procedure: 03/17/23 Preoperative Diagnosis: Dysphagia Postoperative Diagnosis: Mild antral gastritis Sliding hiatal hernia Esophagitis Procedure(s) Performed: EGD Anesthesia: MAC Surgeon: Ariel Vasquez Pathology: other (Antrum, esophagus) Condition: stable Disposition: PACU Description of Procedure: The patient's placed on the endoscopy table in the lateral position. He received IV sedation. Anesthesia placed a central line for IV access. After adequate sedation the gastroscope placed oropharynx passed in the esophagus into the stomach. Scope was then placed through the pylorus. The first and second portion of the duodenum appeared normal. Scope was then brought back the antrum this. Mildly inflamed. A biopsy was performed. The scope was unretroflexed and remainder of the stomach appeared normal. There was a sliding hiatal hernia. The GE junction was at 38 7 is. The distal esophagus appeared infla med. A biopsies performed. The proximal esophagus appeared normal. Scope was withdrawn for patient.
[2023-03-17] MEDS: SUCRALFATE 1 GM TAB PO SCH (16:59)
--- NOTE | 2023-03-17 17:04 | XR ---
EXAMINATION TYPE: XR chest 1V DATE OF EXAM: 03/17/2023 COMPARISON: 03/15/2023 HISTORY: 42-year-old male post invasive line, rule out pneumothorax TECHNIQUE: Single frontal view of the chest is obtained. FINDINGS: Right-sided CVC with tip at the lower SVC. No appreciable pneumothorax. Heart normal size. Aorta and pulmonary vasculature within normal limits. Bilateral nipple shadows noted. No consolidation or pleur al effusion. IMPRESSION: Right-sided CVC, tip at the lower SVC. No appreciable pneumothorax.
--- NOTE | 2023-03-17 17:04 | P.ANPRN ---
Procedure Note - Anesthesia - Invasive Line Right Central Line Time Out Performed: Yes ([id number]) Date of Procedure: 03/17/23 Time of Procedure: 15:48 Location of Patient: Endo Preparation: Sterile Prep, Sterile Dressing Central Line Location: Internal Jugular (right) Ultrasound Used: Yes Purpose - Visualization and Identification of Vasculature: Yes Needle Guage: 18g angio Image Stored and Saved: Yes Narrative: Central line placement per sterile protocol utilized. +Local +angio +jwire +uneventful dilation and introduction right IJ BTUCH
[2023-03-17] MEDS: ONDANSETRON ODT 4 MG TAB PO PRN (17:59)
[2023-03-17] MEDS: QUEtiapine 50 MG TAB PO SCH (20:57)
[2023-03-18] MEDS: LORazepam 2 MG/ML INJ IV PRN ×3 (00:25→05:50)
[2023-03-18] MEDS: chlordiazePOXIDE 25 MG CAP PO PRN ×3 (00:55→22:58)
[2023-03-18] MEDS: Acetaminophen-Codeine 300-30mg TAB PO PRN ×4 (00:55→22:58)
[2023-03-18] MEDS: ONDANSETRON ODT 4 MG TAB PO PRN ×2 (00:55→22:58)
[2023-03-18] MEDS: THIAMINE 100 MG TAB PO SCH (08:13)
[2023-03-18] MEDS: PANTOPRAZOLE 40 MG TABLET PO SCH ×2 (08:13→16:57)
[2023-03-18] MEDS: NICOTINE 21MG/24HR PATCH TRANSDERM SCH (08:13)
[2023-03-18] MEDS: hydrOXYzine HCL 10 MG TAB PO PRN (08:13)
[2023-03-18] MEDS: SUCRALFATE 1 GM TAB PO SCH ×3 (08:13→16:57)
[2023-03-18] MEDS: MAGNESIUM OXIDE 400 MG TAB PO SCH ×3 (08:13→20:21)
[2023-03-18] MEDS: METOPROLOL TARTRATE 25 MG TAB PO SCH ×2 (08:13→20:21)
[2023-03-18] MEDS: levETIRAcetam 500 MG TAB PO SCH ×2 (08:13→20:20)
[2023-03-18] MEDS: LORazepam 1 MG TAB PO PRN ×4 (08:21→20:22)
--- NOTE | 2023-03-18 12:51 | P.PN ---
Subjective Progress Note Date: 03/18/23 CHIEF COMPLAINT: Alcohol intoxication HISTORY OF PRESENT ILLNESS: Surgical service following in regards to melanotic stools. Patient has had no melanotic stools since hospitalization. Denies abdominal pain. Patient denies any nausea or vomiting. He is status post EGD which revealed mild antral gastritis, sliding hiatal hernia and esophagitis. He is tolerating diet. hgb stable at 9.7 from yesterday Patient seen and examined with Dr. Vasquez PHYSICAL EXAM: VITAL SIGNS: Reviewed. GENERAL: Well-developed in no acute distress. ABDOMEN: Soft. Nondistended. Nontender. NEUROLOGIC: Alert and oriented. ASSESSMENT: 1. Alcohol intoxication with alcohol withdrawal 2. Anemia with black stools status post EGD revealing mild antral gastritis, sliding hernia and esophagitis 3. Polysubstance abuse PLAN: -Patient is stable for discharge from surgical standpoint -Continue PPI at discharge -Continue regular diet Physician Meal Miller note has been reviewed by physician. Signing provider agrees with the documented findings, assessment, and plan of care. Objective - Vital Signs Vital signs: Vital Signs Temp 98.7 F 03/18/23 07:07 Pulse 94 03/18/23 07:07 Resp 18 03/18/23 07:07 BP 99/63 03/18/23 07:07 Pulse Ox 100 03/18/23 07:07 FiO2 Intake & Output 03/17/23 03/18/23 03/18/23 18:59 06:59 18:59 Intake Total 300 180 Balance 300 180 Intake: IV 300 Oral 180 Other: Voiding Method Toilet Toilet Toilet Urinal Urinal Urinal # Voids 0 2 # Bowel Movements 0 - Labs CBC & Chem 7: 03/17/23 09:15 03/17/23 09:15
--- NOTE | 2023-03-18 13:31 | P.DS ---
Providers Date of admission: 03/10/23 16:41 Expected date of discharge: 03/18/23 Attending physician: Carlos Lujan Consults: 03/12/23 13:29 Consult Physician Routine Consulting Provider: Ariel Vasquez Consult Reason/Comments: epigastric pain, black stools 2 days ago Do you want consulting provider notified?: Yes 03/14/23 19:58 Consult Physician Routine Consulting Provider: Rober Powell Consult Reason/Comments: being treated outpatient for pna -started on levaquin/prednisone 2 days ago Do you want consulting provider notified?: Yes, Notify in am Primary care physician: Physician Nonstaff Hospital Course: Discharge diagnoses; Acute alcohol intoxication with acute alcohol withdrawal improving Dark stool and epigastric pain rule out acute GIB Anemia, normocytic Hypomagnesemia Polysubstance abuse History of seizure disorder from close head injury in 2010 History of alcohol withdrawal seizure Chronic and ongoing nicotine use History of hypertension Anxiety/Depression/Schizophrenia Hospital course; This is a 42 year old male with history of chronic alcohol abuse, alcohol withdrawal seizure, and opiate abuse, who presents to the emergency room intoxicated and is admitted for alcohol detox. Patient states he arrived to [facility] and was told he could not be admitted for rehab and patient was brought to the emergency room for impending alcohol withdrawal. Patient had blood alcohol level of 397 on admission, with drug toxicology positive for barbituates, benzodiazepines, marijuana. hemoglobin also low at 9.9 with no other levels to compare too, his MCV is normal. Magnesium was 1.3 and also replaced. Patient is hemodynamically stable. He has been started on ativan CIWA protocol and admitted to medical floor. This morning he is refusing lab draws. 03/12/2023 Patient today is doing well requiring less ativan, tremors have improved. He denies any nausea/ vomiting but has not been able to tolerate much oral intake secondary to abdominal pain which is tender over the epigastric area. He does report having black stools a few days ago which he had denied yesterday. Per [facility] patient is unable to return unless he is cleared by GI services which currently unavailable in the hospital this admission. Hemoglobin today is currently pending. Sodium today is 134, magnesium 1.2. Patient lost IV access and difficult to obtain he is pending a midline today to continue with the IV fluids and replace his magnesium. He reports feeling weak also. 03/13/2023 Patient evaluated today he is resting in bed. His mentation has improved today. He reports generalized aches and pains. States he was using suboxone not prescribed to him by a provider, states due to his alcoholism his doctor will no longer prescribe it to him. He is agreeing again for midline placement and order is placed. Magnesium will be replaced once patient receives IV access. No bowel movement overnight. Labs today show hemoglobin of 9.1, platelets of 286. Sodium of 135, magnesium 1.2. 03/14/2023 Patient is resting in bed. Received midline yesterday and was able to receive 2 grams of IV magnesium. IV fluids were not infusing. IV access was lost again overnight. Patients labs today showing sodium of 135, magnesium of 1.5. Oral magnesium oral zofran and oral ativan CIWA protocol are continued. Midline is ordered. Patient unable to tolerate much oral intake. 03/15. Patient seen and examined. Sodium this morning is 135, potassium 4.5, BUN 10, creatinine 0.48, magnesium 1.6 . No further episodes of nausea and vomiting 03/16. Patient seen and examined. No lab work this morning. Vital signs stable 03/17. Patient seen and examined. Denies any lightheadedness or dizziness. Hemoglobin this morning is 9.7. Platelet count 205 03/18. Patient seen and examined. EGD done showed gastritis. Surgery recommend discharging patient on oral Protonix PHYSICAL EXAMINATION: GENERAL: The patient is alert and oriented x3, not in any acute distress. Well developed, well nourished. HEENT: Pupils are round and equally reacting to light. EOMI. No scleral icterus. No conjunctival pallor. Normocephalic, atraumatic. No pharyngeal erythema. No thyromegaly. CARDIOVASCULAR: S1 and S2 present. No murmurs, rubs, or gallops. PULMONARY: Chest is clear to auscultation, no wheezing or crackles. ABDOMEN: Soft, nontender, nondistended, normoactive bowel sounds. No palpable organomegaly. MUSCULOSKELETAL: No joint swelling or deformity. EXTREMITIES: No cyanosis, clubbing, or pedal edema. NEUROLOGICAL: Gross neurological examination did not reveal any focal deficits. SKIN: No rashes. Patient Condition at Discharge: Fair Plan - Discharge Summary Discharge Rx Participant: No New Discharge Prescriptions: New Sucralfate [Carafate] 1 gm PO AC-TID #90 tab Continue levETIRAcetam [Keppra] 1,000 mg PO BID Pantoprazole [Protonix] 40 mg PO BID Magnesium Oxide [Magox 400] 400 mg PO DAILY Nicotine 21Mg/24Hr Patch [Habitrol] 1 patch TRANSDERM DAILY PRN PRN Reason: Nicotine Cravings Folic Acid 1 mg PO DAILY Ondansetron Odt [Zofran ODT] 4 mg PO TID PRN PRN Reason: Nausea High Potency Multivitamin With Iron 1 tab PO DAILY Metoprolol Tartrate [Lopressor] 25 mg PO BID Thiamine [Vitamin B-1] 100 mg PO DAILY Acetaminophen Tab [Tylenol] 650 mg PO Q6H PRN PRN Reason: Pain Or Fever > 100.5 QUEtiapine [SEROquel] 50 mg PO HS Discharge Medication List Acetaminophen Tab [Tylenol] 650 mg PO Q6H PRN 03/10/23 [History] Folic Acid 1 mg PO DAILY 03/10/23 [History] High Potency Multivitamin With Iron 1 tab PO DAILY 03/10/23 [History] Magnesium Oxide [Magox 400] 400 mg PO DAILY 03/10/23 [History] Metoprolol Tartrate [Lopressor] 25 mg PO BID 03/10/23 [History] Nicotine 21Mg/24Hr Patch [Habitrol] 1 patch TRANSDERM DAILY PRN 03/10/23 [History] Ondansetron Odt [Zofran ODT] 4 mg PO TID PRN 03/10/23 [History] Pantoprazole [Protonix] 40 mg PO BID 03/10/23 [History] QUEtiapine [SEROquel] 50 mg PO HS 03/10/23 [History] Thiamine [Vitamin B-1] 100 mg PO DAILY 03/10/23 [History] levETIRAcetam [Keppra] 1,000 mg PO BID 03/10/23 [History] Sucralfate [Carafate] 1 gm PO AC-TID #90 tab 03/18/23 [Rx] Follow up Appointment(s)/Referral(s): Jenniffer Ortega MD [REFERRING] - [facility] [NON-STAFF] - (Call [facility] to set up returning to them once patient is ready. ) Discharge/Stand Alone Forms: In Substance Abuse Facilities Discharge Disposition: OTHER INSTITUTION NOT DEFINED
[2023-03-18] MEDS: QUEtiapine 50 MG TAB PO SCH (20:21)
[2023-03-19] MEDS: LORazepam 1 MG TAB PO PRN ×2 (02:47→06:45)
[2023-03-19] MEDS: chlordiazePOXIDE 25 MG CAP PO PRN (06:43)
[2023-03-19] MEDS: Acetaminophen-Codeine 300-30mg TAB PO PRN (06:43)
[2023-03-19 07:24] VITALS: BP 116/73; PULSE 89; RESP 18; TEMP 98.3
[2023-03-19] MEDS: PANTOPRAZOLE 40 MG TABLET PO SCH (07:57)
[2023-03-19] MEDS: SUCRALFATE 1 GM TAB PO SCH (07:57)
[2023-03-19] MEDS: NICOTINE 21MG/24HR PATCH TRANSDERM SCH (07:57)
[2023-03-19] MEDS: THIAMINE 100 MG TAB PO SCH (07:57)
[2023-03-19] MEDS: METOPROLOL TARTRATE 25 MG TAB PO SCH (07:57)
[2023-03-19] MEDS: MAGNESIUM OXIDE 400 MG TAB PO SCH (07:57)
[2023-03-19] MEDS: levETIRAcetam 500 MG TAB PO SCH (07:57)
--- NOTE | 2023-03-19 09:25 | P.PN ---
Subjective Progress Note Date: 03/19/23 This is a 42 year old male with history of chronic alcohol abuse, alcohol withdrawal seizure, and opiate abuse, who presents to the emergency room intoxicated and is admitted for alcohol detox. Patient states he arrived to [facility] and was told he could not be admitted for rehab and patient was brought to the emergency room for impending alcohol withdrawal. Patient had blood alcohol level of 397 on admission, with drug toxicology positive for barbituates, benzodiazepines, marijuana. hemoglobin also low at 9.9 with no other levels to compare too, his MCV is normal. Magnesium was 1.3 and also replaced. Patient is hemodynamically stable. He has been started on ativan CIWA protocol and admitted to medical floor. This morning he is refusing lab draws. 03/12/2023 Patient today is doing well requiring less ativan, tremors have improved. He denies any nausea/ vomiting but has not been able to tolerate much oral intake secondary to abdominal pain which is tender over the epigastric area. He does report having black stools a few days ago which he had denied yesterday. Per [place] patient is unable to return unless he is cleared by GI services which currently unavailable in the hospital this admission. Hemoglobin today is currently pending. Sodium today is 134, magnesium 1.2. Patient lost IV access and difficult to obtain he is pending a midline today to continue with the IV fluids and replace his magnesium. He reports feeling weak also. 03/13/2023 Patient evaluated today he is resting in bed. His mentation has improved today. He reports generalized aches and pains. States he was using suboxone not prescribed to him by a provider, states due to his alcoholism his doctor will no longer prescribe it to him. He is agreeing again for midline placement and order is placed. Magnesium will be replaced once patient receives IV access. No bowel movement overnight. Labs today show hemoglobin of 9.1, platelets of 286. Sodium of 135, magnesium 1.2. 03/14/2023 Patient is resting in bed. Received midline yesterday and was able to receive 2 grams of IV magnesium. IV fluids were not infusing. IV access was lost again overnight. Patients labs today showing sodium of 135, magnesium of 1.5. Oral magnesium oral zofran and oral ativan CIWA protocol are continued. Midline is ordered. Patient unable to tolerate much oral intake. 5/6. Patient seen and examined. Sodium this morning is 135, potassium 4.5, BUN 10, creatinine 0.48, magnesium 1.6 . No further episodes of nausea and vomiting 03/16. Patient seen and examined. No lab work this morning. Vital signs stable 03/17. Patient seen and examined. Denies any lightheadedness or dizziness. Hemoglobin this morning is 9.7. Platelet count 205 03/19. Patient seen and examined. Currently waiting on bed availability at [facility]. Patient already discharge yesterday, discharge medication reviewed. REVIEW OF SYSTEMS: CONSTITUTIONAL: No fever, no malaise,. CARDIOVASCULAR: No chest pain, no palpitations, no syncope. PULMONARY: No shortness of breath, no cough, GASTROINTESTINAL: No diarrhea, no nausea, no vomiting, no abdominal pain. NEUROLOGICAL: No headaches, no weakness, PHYSICAL EXAMINATION: GENERAL: The patient is alert and oriented x3, not in any acute distress. Well developed, well nourished. HEENT: Pupils are round and equally reacting to light. EOMI. No scleral icterus. No conjunctival pallor. Normocephalic, atraumatic. No pharyngeal erythema. No thyromegaly. CARDIOVASCULAR: S1 and S2 present. No murmurs, rubs, or gallops. PULMONARY: Chest is clear to auscultation, no wheezing or crackles. ABDOMEN: Soft, nontender, nondistended, normoactive bowel sounds. No palpable organomegaly. MUSCULOSKELETAL: No joint swelling or deformity. EXTREMITIES: No cyanosis, clubbing, or pedal edema. NEUROLOGICAL: Gross neurological examination did not reveal any focal deficits. SKIN: No rashes. Assessment and plan Acute alcohol intoxication with acute alcohol withdrawal improving Dark stool and epigastric pain rule out acute GIB Anemia, normocytic Hypomagnesemia Polysubstance abuse History of seizure disorder from close head injury in 2010 History of alcohol withdrawal seizure Chronic and ongoing nicotine use History of hypertension Anxiety/Depression/Schizophrenia Plan; Monitor vital signs Continue Keppra Continue Librium Continue oral Protonix He is being discharged to [facility] Objective - Vital Signs Vital signs: Vital Signs Temp 98.3 F 03/19/23 07:23 Pulse 89 03/19/23 08:00 Resp 18 03/19/23 08:00 BP 116/73 03/19/23 07:23 Pulse Ox 100 03/19/23 07:23 FiO2 Intake & Output 03/18/23 03/19/23 03/19/23 18:59 06:59 18:59 Intake Total 360 Balance 360 Intake: Oral 360 Other: Voiding Method Toilet Toilet Toilet Urinal Urinal Urinal # Voids 4 2 # Bowel Movements 1 - Labs CBC & Chem 7: 03/17/23 09:15 03/17/23 09:15
--- NOTE | 2023-03-21 22:12 | CDI ---
Documentation Clarification Form Date: 03/21/2023 9:56:46 PM From: Sophia Albright Phone: Admit Date: 03/10/2023 4:41:00 PM Patient Name: Donte Stern Visit Number: [id number] Discharge Date: 03/19/2023 11:00:00 AM ATTENTION: The Clinical Documentation Specialists (CDI) and [facility] Coding Staff appreciate your assistance in clarifying documentation. Please respond to the clarification below the line at the bottom and electronically sign. The CDI & [facility] Coding staff will review the response and follow-up if needed. Please note: Queries are made part of the Legal Health Record. If you have any questions, please contact the author of this message via ITS. Dr. Manuel Israel Anemiasecondary tosuspectedupper GI bleedingwith black tarry stools per Consult 03/15/2023. Additional specificity regarding the type and acuity of anemia is requested. History/Risk Factors: 42yo M, chronic gastritis, acuteerosive esophagitis, acute ETOH intoxicationwithW/D w Hx seizure, melena, anemia, smoker, HTN, hypomagnesemia, polysubstance abuse, Hxseizure disorderd/tclosedhead injury, anxiety, depression, schizophrenia Clinical indicators: Hemoglobin: 03/10/23 9.9 03/12 8.9 03/13 9.1 03/14/23 9.0 03/17/23 9.7 Hematocrit: 03/10/23 31.4 03/12/23 30.9 03/13/23 30.3 03/14/23 31.4 03/17/23 33.2 Treatment: Repeat labs in AM Please clarify the type and acuity of anemia: [ x ] Acute blood loss anemia [ ] Acute on chronic blood loss anemia [ ] Unable to determine [ ] Other, please specify (Template Last Revised: December 2020) MTDD
== END 2023-03-19 11:00 | DRG 773 ==
LOC: EC 12:04 → 4SSUR 16:41
PROVIDERS: ADMIT Hospitalist; ATTEND Hospitalist
PROC: HZ2ZZZZ Detoxification Services for Substance Abuse Treatment (ICD-10-PCS; principal; 2023-03-10)
PROC: 0DB48ZX Excision of Esophagogastric Junction, Via Natural or Artificial Opening Endoscopic, Diagnostic (ICD-10-PCS; 2023-03-17)
PROC: 0DB78ZX Excision of Stomach, Pylorus, Via Natural or Artificial Opening Endoscopic, Diagnostic (ICD-10-PCS; 2023-03-17)
DX: F10.229 Alcohol dependence with intoxication, unspecified (principal); F11.20 Opioid dependence, uncomplicated; F10.231 Alcohol dependence with withdrawal delirium; K22.11 Ulcer of esophagus with bleeding; K29.51 Unspecified chronic gastritis with bleeding; I85.00 Esophageal varices without bleeding; D62 Acute posthemorrhagic anemia; E83.42 Hypomagnesemia; G40.909 Epilepsy, unspecified, not intractable, without status epilepticus; F20.9 Schizophrenia, unspecified; F32.A Depression, unspecified; F19.10 Other psychoactive substance abuse, uncomplicated; I10 Essential (primary) hypertension; R13.10 Dysphagia, unspecified; K44.9 Diaphragmatic hernia without obstruction or gangrene; F17.210 Nicotine dependence, cigarettes, uncomplicated; F41.9 Anxiety disorder, unspecified; K92.1 Melena; Y90.8 Blood alcohol level of 240 mg/100 ml or more; Z53.20 Procedure and treatment not carried out because of patient's decision for unspecified reasons; Z87.820 Personal history of traumatic brain injury; Z88.6 Allergy status to analgesic agent; Z88.0 Allergy status to penicillin; Z87.01 Personal history of pneumonia (recurrent); Z87.19 Personal history of other diseases of the digestive system; Z79.899 Other long term (current) drug therapy
CPT/HCPCS: 36410; 36415; 43239; 71045; 76937; 80048; 80053; 80306; 80320; 83690; 83735; 84100; 85025; 85027; 88305; 88342; 96361; 96372; 96374; 96376; 99285